=== PATIENT | female | born 1985 | race Caucasian/White ===

== ENCOUNTER 2018-10-03 21:15 | Emergency (ER) | payer SELFPAY ==
--- NOTE | 2018-10-04 00:58 | EDPHYS ---
Physician Documentation [facility] Name: Juana Vigil Age: 33 yrs Sex: Female : 1985 Arrival Date: 10/03/2018 Time: 21:19 Bed 5 Private MD: ED Physician Willard Cornejo HPI: 10/04 00:17 This 33 yrs old Female presents to ER via Wheelchair with complaints of Ankle jmm Injury. 00:17 The patient presents with an injury, pain. Onset: The symptoms/episode began/occurred jmm acutely, just prior to arrival. Context: The problem was sustained at work, resulted from a mis-step by the patient, The mechanism of injury involved inversion of the affected ankle. The patient can partially bear weight on the affected extremity. the patient is able to ambulate, with moderate difficulty. Modifying factors: The symptoms are alleviated by elevation of extremity, the symptoms are aggravated by weight bearing, movement. Patient complains of diffuse left ankle pain after twisting her left ankle. patient denies other injury. . 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 - Social history:: Smoking status: Patient uses tobacco products, smokes one-half pack cigarettes per day. - Ebola Screening: : No symptoms or risks identified at this time. ROS: 10/04 00:17 Constitutional: Negative for fever, chills, and weight loss. jmm MS/extremity: Positive for injury or acute deformity, pain. All other systems are negative. Exam: 00:17 Constitutional: This is a well developed, well nourished patient who is awake, alert, jmm and in no acute distress. Head/Face: atraumatic. Eyes: EOMI, no conjunctival erythema appreciated ENT: Moist Mucus Membranes Neck: Trachea midline, Supple Chest/axilla: Normal chest wall appearance and motion. Cardiovascular: Regular rate and rhythm. No edema appreciated Respiratory: Normal respirations, no respiratory distress appreciated Abdomen/GI: Non distended, soft Back: Normal ROM Skin: General appearance color normal 00:17 Musculoskeletal/extremity: diffuse left ankle pain on palpation, no obvious deformity is appreciated, full dorsalis pedis pulse, compartments are soft, no tenderness appreciated on palpation of the base of the 5th metatarsal, NVI. 00:17 Psych: Behavior/mood is pleasant, cooperative. Vital Signs: 10/03 21:38 BP 119 / 87; Pulse 88; Resp 18; Temp 98(O); Pulse Ox 98% on R/A; Weight 136.08 kg; lp1 Height 5 ft. 9 in. (175.26 cm); Pain 10/10; 23:35 BP 120 / 81; Pulse 89; Resp 17 S; Pulse Ox 98% on R/A; cc3 10/04 00:55 BP 121 / 78; Pulse 88; Resp 16 S; Pulse Ox 97% on R/A; cc3 10/03 21:38 Body Mass Index 44.30 (136.08 kg, 175.26 cm) lp1 Procedures: 00:17 Splinting: Splint applied to left leg using posterior splint. applied by tech. Examined jmm by me, post splint application: neurovascular intact, 2+ distal pulses palpable, brisk capillary refill noted, Patient tolerated well. MDM: 00:17 Patient medically screened. [facility] 00:56 Data reviewed: vital signs, nurses notes. Counseling: I had a detailed discussion with [facility] the patient and/or guardian regarding: the historical points, exam findings, and any diagnostic results supporting the discharge/admit diagnosis, the need for outpatient follow up, to return to the emergency department if symptoms worsen or persist or if there are any questions or concerns that arise at home. 00:56 Counseling: I had a detailed discussion with the patient and/or guardian regarding: [facility] radiology results. 10/03 21:39 Order name: Ankle Left 3 View XRAY lp1 10/04 00:30 Order name: Posterior Leg Splint; Complete Time: 01:11 [facility] 10/04 00:30 Order name: Crutches; Complete Time: 01:11 [facility] Administered Medications: 00:55 Drug: [place] 10 mg-325 mg 1 tabs Route: PO; cc3 01:15 Follow up: Response: No adverse reaction; Pain is decreased cc3 Disposition: 05:18 Co-signature as Attending Physician, Willard Cornejo MD. Disposition: 03/28/19 00:57 Discharged to Home. Impression: Sprain of ankle. - Condition is Stable. - Discharge Instructions: Ankle Sprain. - Prescriptions for Ibuprofen 800 mg Oral Tablet - take 1 tablet by ORAL route every 8 hours As needed take with food; 30 tablet. - Work release form, Medication Reconciliation Form, Thank You Letter, Antibiotic Education, Prescription Opioid Use form. - Follow up: Private Physician; When: 2 - 3 days; Reason: Recheck today's complaints, Continuance of care, Re-evaluation by your physician. Follow up: Audie Arambula MD; When: 2 - 3 days; Reason: Recheck today's complaints, Continuance of care, Re-evaluation by your physician. Signatures: Dispatcher [employer] EDMS Raymon Baltazar PA PA jmm Pena, Laura, RN RN lp1 Willard Cornejo MD MD Renate Siu cc3 Corrections: (The following items were deleted from the chart) 00:58 00:57 10/04/2018 00:57 Discharged to Home. Impression: Sprain of ankle. Condition is [facility] Stable. Forms are Medication Reconciliation Form, Thank You Letter, Antibiotic Education, Prescription Opioid Use. Follow up: Private Physician; When: 2 - 3 days; Reason: Recheck today's complaints, Continuance of care, Re-evaluation by your physician. [facility] 01:24 00:58 10/04/2018 00:57 Discharged to Home. Impression: Sprain of ankle. Condition is cc3 Stable. Discharge Instructions: Ankle Sprain. Prescriptions for Ibuprofen 800 mg Oral Tablet - take 1 tablet by ORAL route every 8 hours As needed take with food; 30 tablet. and Forms are Medication Reconciliation Form, Thank You Letter, Antibiotic Education, Prescription Opioid Use. Follow up: Private Physician; When: 2 - 3 days; Reason: Recheck today's complaints, Continuance of care, Re-evaluation by your physician. Follow up: Audie Arambula; When: 2 - 3 days; Reason: Recheck today's complaints, Continuance of care, Re-evaluation by your physician. [facility]
--- NOTE | 2018-10-04 00:58 | ER ---
Nurse's Notes [facility] Name: Juana Vigil Age: 33 yrs Sex: Female : 1985 Arrival Date: 10/03/2018 Time: 21:19 Bed 5 Private MD: Diagnosis: Sprain of ankle Presentation: 10/03 21:35 Presenting complaint: Patient states: Patient was at work and slipped on something on lp1 the floor, rolled left ankle; States continuing to work after but pain began to get worse; Denies ability to bear weight. Transition of care: patient was not received from another setting of care. Onset of symptoms was October 03, 2018 at 18:20. Risk Assessment: Do you want to hurt yourself or someone else? Patient reports no desire to harm self or others. Initial Sepsis Screen: Does the patient meet any 2 criteria? No. Patient's initial sepsis screen is negative. Does the patient have a suspected source of infection? No. Patient's initial sepsis screen is negative. Care prior to arrival: None. 21:35 Method Of Arrival: Wheelchair lp1 21:35 Acuity: HUEY 4 lp1 Triage Assessment: 23:27 General: Appears in no apparent distress. uncomfortable, Behavior is calm, cooperative, cc3 appropriate for age. Pain: Complains of pain in left leg. EENT: No signs and/or symptoms were reported regarding the EENT system. Neuro: Level of Consciousness is awake, alert, obeys commands, Oriented to person, place, time, situation, Appropriate for age. Cardiovascular: Patient's skin is warm and dry. Respiratory: Airway is patent Respiratory effort is even, unlabored, Respiratory pattern is regular, symmetrical. GI: Abdomen is round obese. : No signs and/or symptoms were reported regarding the genitourinary system. Derm: No signs and/or symptoms reported regarding the dermatologic system. Musculoskeletal: Circulation, motion, and sensation intact. Range of motion: limited in left leg. 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 - Social history:: Smoking status: Patient uses tobacco products, smokes one-half pack cigarettes per day. - Ebola Screening: : No symptoms or risks identified at this time. Screenin:27 Abuse screen: Denies threats or abuse. Denies injuries from another. Nutritional cc3 screening: No deficits noted. Tuberculosis screening: No symptoms or risk factors identified. Fall Risk Ambulatory Aid- None/Bed Rest/Nurse Assist (0 pts). Gait- Normal/Bed Rest/Wheelchair (0 pts) Mental Status- Oriented to own ability (0 pts). Assessment: 23:27 General: see triage assessment. cc3 10/04 00:15 Reassessment: Patient appears in no apparent distress at this time. Patient and/or cc3 family updated on plan of care and expected duration. Pain level reassessed. Patient is alert, oriented x 3, equal unlabored respirations, skin warm/dry/pink. 01:15 Reassessment: Patient appears in no apparent distress at this time. Patient and/or cc3 family updated on plan of care and expected duration. Pain level reassessed. Patient is alert, oriented x 3, equal unlabored respirations, skin warm/dry/pink. JAMEL Baltazar discharged the patient home with prescription given. No IV cannula in situ. Patient left ER vitally stable by wheelchair escorted by me and her brother. Vital Signs: 10/03 21:38 BP 119 / 87; Pulse 88; Resp 18; Temp 98(O); Pulse Ox 98% on R/A; Weight 136.08 kg; lp1 Height 5 ft. 9 in. (175.26 cm); Pain 10/10; 23:35 BP 120 / 81; Pulse 89; Resp 17 S; Pulse Ox 98% on R/A; cc3 10/04 00:55 BP 121 / 78; Pulse 88; Resp 16 S; Pulse Ox 97% on R/A; cc3 10/03 21:38 Body Mass Index 44.30 (136.08 kg, 175.26 cm) lp1 ED Course: 10/03 21:19 Patient arrived in ED. es 21:37 Triage completed. lp1 21:38 Arm band placed on right wrist. lp1 22:50 Ankle Left 3 View XRAY In Process Unspecified. EDMS 23:27 Renate Siu is Primary Nurse. cc3 23:27 Patient has correct armband on for positive identification. Bed in low position. Call cc3 light in reach. Side rails up X 1. Pulse ox on. NIBP on. 23:44 Raymon Baltazar PA is PHCP. [facility] [place] 23:44 Willard Cornejo MD is Attending Physician. [facility] 10/04 00:58 Audie Arambula MD is Referral Physician. [facility] 01:09 Crutch training done. Orthoglass splint: Posterior short lleg splint applied on left me leg. 01:15 No provider procedures requiring assistance completed. Patient did not have IV access cc3 during this emergency room visit. Administered Medications: 00:55 Drug: [place] 10 mg-325 mg 1 tabs Route: PO; cc3 01:15 Follow up: Response: No adverse reaction; Pain is decreased cc3 Outcome: 00:57 Discharge ordered by . [facility] [place] 01:15 Discharged to home via wheelchair. cc3 01:15 Condition: stable 01:15 Discharge instructions given to patient, Instructed on discharge instructions, follow up and referral plans. medication usage, Demonstrated understanding of instructions, follow-up care, medications, Prescriptions given X 1. 01:24 Patient left the ED. cc3 Signatures: Dispatcher [employer] EDMS Raymon Baltazar PA PA [facility] [place] Mckenna De Jesus Laura, RN RN lp1 [facility] Reante Siu cc3 Corrections: (The following items were deleted from the chart) 04:38 00:20 BP 121 / 78; Pulse 88bpm; Resp 16bpm; Spontaneous; Pulse Ox 97% RA; cc3 cc3
[2018-10-04] MEDS ORDERED: HYDROCODONE/APAP 10/325 TAB ONE (01:06)
--- NOTE | 2018-10-04 08:16 | RAD REPORT ---
EXAM DESCRIPTION: RAD - Ankle Left 3 View -10/03/2018 10:49 pm CLINICAL HISTORY: Left ankle pain status post injury FINDINGS: No acute fracture or dislocation is seen. Bony density with a sclerotic border lies inferi or to the lateral malleolus and likely either represents an ossicle or is chronic Soft tissue swelling
== END 2018-10-04 01:24 | disposition home or self-care (01) ==
LOC: ER 21:15
PROC: 2W3RX1Z Immobilization of Left Lower Leg using Splint (ICD-10-PCS; principal; 2018-10-03)
DX: S93.402A Sprain of unspecified ligament of left ankle, initial encounter (principal); X50.1XXA Overexertion from prolonged static or awkward postures, initial encounter; J45.909 Unspecified asthma, uncomplicated; F32.9 Major depressive disorder, single episode, unspecified; Z88.0 Allergy status to penicillin; F17.210 Nicotine dependence, cigarettes, uncomplicated
CPT/HCPCS: 99284

== ENCOUNTER 2018-10-12 10:06 | Emergency (ER) | payer SELFPAY ==
[2018-10-12] MEDS ORDERED: MORPHINE 4 MG/ML SYR ONE (10:58)
[2018-10-12] MEDS ORDERED: ONDANSETRON 4 MG/2 ML VIAL ONE (10:58)
[2018-10-12] MEDS ORDERED: NA CHLORIDE 0.9% 1,000 ML ONE (11:08)
[2018-10-12 11:10] LABS: Absolute Lymphocytes (CBC) 2.4 K/uL (0.7-4.9); Absolute Monocytes 0.7 K/uL (0.1-1.3); Absolute Neutrophil 9.5 K/uL (1.8-8.0); Basophils % 0.7 % (0-1.3); Eosinophils % 0.8 % (0-4.4); Lymphocytes % 18.8 % (15.3-44.8); Monocytes % 5.6 % (3.3-12.3); RBC Red Blood Cell Count 4.93 M/uL (3.86-4.86)
[2018-10-12 11:17] LABS: Urine Blood 3+ (NEG); Urine Glucose NEGATIVE (NEG); Urine Protein 2+ (NEG); Urine Specific Gravity 1.025 (1.005-1.030); Urine pH 5.5 (5.0-7.0)
--- NOTE | 2018-10-12 11:26 | RAD REPORT ---
EXAM DESCRIPTION: CT - Stone Protocol - 10/12/2018 11:15 am CLINICAL HISTORY: Left-sided abdominal pain, left-sided flank pain COMPARISON: None. TECHNIQUE: Axial 5 mm thick images were obtained without oral or IV contrast. The [id number] span s the entirety of the system including uppermost abdomen and lung bases. All CT scans are performed using dose optimization technique as appropriate and may include automated exposure control or mA/KV adjustment according to patient size. FINDINGS: A 2-3 millimeter calcification is present at the left UVJ. No measurable hydronephrosis. N o right-sided hydronephrosis. Bilateral nonobstructing calyx calculi are present. Largest is on the r ight at 7 mm lower pole. In the medial superior margin left kidney a 13 millimeter round low-density mass is present. Attenuation value is 11 Hounsfield units. This is probably a benign cyst. There is a punctate calcification along the posterior margin. This is not fully assessed on a noncontrast study . Isodense masses and pyelonephritis are not excluded on non IV contrast imaging. Urinary bladder is mostly contracted. No significant adrenal finding. Fatty infiltration is seen in the liver. No focal liver lesions seen. The spleen and pancreas show no suspicious findings. No gallbladder or biliary tree abnormality identified. No suspicious bowel findings. No hernia, mass or bulky lymphadenopathy noted. No free air, free fluid or inflammatory stranding. No significant bony abnormality. IMPRESSION: A small 2- 3 millimeter left UVJ calculus is present but without hydronephrosis. Approximately 13 millimeter low-density mass upper pole left kidney most likely a minimal complex cys t due to a punctate rim calcification. This can be monitored on follow-up imaging. Long-term signific ance is doubtful. Bilateral nonobstructing renal calculi. Diffuse fatty infiltration of the liver. Isodense masses and pyelonephritis are not excluded on stone protocol technique.
[2018-10-12 11:31] LABS: ALT/SGPT 46 U/L (12-78); AST/SGOT 18 U/L (15-37); Albumin 3.5 g/dL (3.4-5.0); Alkaline Phosphatase 82 U/L (45-117); BUN Blood Urea Nitrogen 13 mg/dL (7-18); Bicarbonate 24 mmol/L (21-32); Bilirubin Direct < 0.1 mg/dL (0-0.2); Bilirubin Total 0.4 mg/dL (0.2-1.0); Glucose Level 158 mg/dL (74-106); Lipase 139 U/L (73-393); Potassium 4.1 mmol/L (3.5-5.1); Protein, Total 7.5 g/dL (6.4-8.2); Sodium Level 140 mmol/L (136-145)
[2018-10-12] MEDS ORDERED: KETOROLAC 30 MG/ML INJ ONE (11:54)
--- NOTE | 2018-10-12 12:29 | EDPHYS ---
Physician Documentation [facility] Name: Juana Vigil Age: 33 yrs Sex: Female : 1985 Arrival Date: 10/12/2018 Time: 10:07 Bed 18 Private MD: ED Physician Jf Rodriguez HPI: 10/12 10:43 This 33 yrs old Female presents to ER via Ambulatory with complaints of jmm Abdominal Pain, Back Pain. 10:43 The patient presents with abdominal pain. Onset: The symptoms/episode began/occurred jmm acutely, 2 hour(s) ago. The symptoms radiate to left back. This is a 33 year old female with a history of astham, depression, PCOS, that presents to the ED with left flank pain beginning approx 2 hours prior to arrival. patient states the pain radiates to her left flank. . 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 - Social history:: Smoking status: Patient uses tobacco products, Patient uses alcohol. - Ebola Screening: : Patient negative for fever greater than or equal to 101.5 degrees Fahrenheit, and additional compatible Ebola Virus Disease symptoms Patient denies exposure to infectious person Patient denies travel to an Ebola-affected area in the 21 days before illness onset. ROS: 10:43 Constitutional: Negative for fever, chills, and weight loss, Cardiovascular: Negative jmm for chest pain, palpitations, and edema, Respiratory: Negative for shortness of breath, cough, wheezing, and pleuritic chest pain. 10:43 Abdomen/GI: Positive for abdominal pain, nausea, flank pain. 10:43 All other systems are negative. Exam: 10:43 Head/Face: atraumatic. Eyes: EOMI, no conjunctival erythema appreciated ENT: Moist jmm Mucus Membranes Neck: Trachea midline, Supple Chest/axilla: Normal chest wall appearance and motion. Cardiovascular: Regular rate and rhythm. No edema appreciated Respiratory: Normal respirations, no respiratory distress appreciated 10:43 MS/ Extremity: Moves all extremities, no obvious deformities appreciated, no edema noted to the lower extremities Neuro: Awake and alert, normal gait Psych: Behavior is normal, Mood is normal, Patient is cooperative and pleasant 10:43 Constitutional: The patient appears in no acute distress, alert, awake. 10:43 Abdomen/GI: Inspection: abdomen appears normal, Bowel sounds: normal, Palpation: soft, moderate abdominal tenderness, in the left lower quadrant. 10:43 Back: ROM is normal, CVA tenderness, that is moderate, is noted on the left. Vital Signs: 10:19 BP 126 / 87; Pulse 82; Resp 18; Temp 98.2(TE); Pulse Ox 98% on R/A; Weight 136.08 kg; hj Height 5 ft. 8 in. (172.72 cm); Pain 10/10; 11:10 BP 111 / 63; Pulse 68; Resp 18; Pulse Ox 99% on R/A; Pain 6/10; em 12:24 BP 117 / 71; Pulse 64; Resp 18; Pulse Ox 98% on R/A; Pain 4/10; em 10:19 Body Mass Index 45.62 (136.08 kg, 172.72 cm) MDM: 10:46 Patient medically screened. [facility] 12:27 Data reviewed: vital signs, nurses notes. Counseling: I had a detailed discussion with julio césar the patient and/or guardian regarding: the historical points, exam findings, and any diagnostic results supporting the discharge/admit diagnosis, radiology results, the need for outpatient follow up, to return to the emergency department if symptoms worsen or persist or if there are any questions or concerns that arise at home. ED course: Patient's pain relieved in the ED. CT reveal uvj stone consistent with patient's area of pain. Patient is advised to follow up with urology and otherwise given strict return precautions. Patient understood and agrees with the plan of care. . 10/12 10:46 Order name: Urine Dipstick--Ancillary (enter results); Complete Time: 11:24 10/12 10:46 Order name: Urine --Ancillary (enter results); Complete Time: 11:24 10/12 10:47 Order name: Basic Metabolic Panel; Complete Time: 11:32 [facility] 10/12 10:47 Order name: CBC with Diff; Complete Time: 11:24 [facility] 10/12 10:47 Order name: Creatinine for Radiology; Complete Time: 11: [facility] 10/12 10:47 Order name: Hepatic Function; Complete Time: 11: [facility] 10/12 10:47 Order name: Lipase; Complete Time: [facility] 10/12 10:47 Order name: IV Saline Lock; Complete Time: 11: [facility] 10/12 10:47 Order name: Labs collected and sent; Complete Time: : [facility] 10/12 10:47 Order name: CT Stone Protocol; Complete Time: 11: [facility] 10/12 10:47 Order name: Urine Dipstick-Ancillary (obtain specimen); Complete Time: 11: [facility] Administered Medications: 10:55 Drug: morphine 4 mg Route: IVP; Site: right hand; hb 11:10 Follow up: Response: No adverse reaction; Pain is decreased em 10:55 Drug: Zofran 4 mg Route: IVP; Site: right hand; hb 11:10 Follow up: Response: No adverse reaction; Nausea is decreased em 11:02 Drug: NS 0.9% 1000 ml Route: IV; Rate: 1 bolus; Site: right hand; em 12:30 Follow up: IV Status: Completed infusion; IV Intake: 1000ml em 11:53 Drug: Ketorolac 30 mg Route: IVP; Site: right hand; hb 12:15 Follow up: Response: No adverse reaction; Pain is decreased em Disposition: 13:38 Co-signature as Attending Physician, Jf Rodriguez MD I agree with the assessment and kdr plan of care. Disposition: 10/12/18 12:28 Discharged to Home. Impression: Calculus of kidney and ureter. - Condition is Stable. - Discharge Instructions: Kidney Stones, Dietary Guidelines to Help Prevent Kidney Stones. - Prescriptions for Zofran ODT 4 mg Oral tablet,disintegrating - place 1 tablet by TRANSLINGUAL route every 4-6 hours; 20 tablet. Tylenol- Codeine #3 300-30 mg Oral Tablet - take 1 tablet by ORAL route every 6 hours As needed; 20 tablet. Flomax 0.4 mg Oral Capsule, Sust. Release 24 hr - take 1 capsule by ORAL route once daily 1/2 hour following the same meal each day; 30 capsule. - Medication Reconciliation Form, Thank You Letter, Antibiotic Education, Prescription Opioid Use, Work release form form. - Follow up: Obie Bartholomew MD; When: 2 - 3 days; Reason: Recheck today's complaints, Continuance of care, Re-evaluation by your physician. Signatures: Dispatcher [employer] Jf Holliday MD MD kdr Mickail, Joel, PA PA jmm Munoz, Edgar, SALES TEAM MANAGER SALES TEAM MANAGER em Prasanna Boles RN RN Blanca Young RN RN Corrections: (The following items were deleted from the chart) 12:50 12:28 10/12/2018 12:28 Discharged to Home. Impression: Calculus of kidney and ureter. em Condition is Stable. Forms are Medication Reconciliation Form, Thank You Letter, Antibiotic Education, Prescription Opioid Use. Follow up: Oibe Bartholomew; When: 2 - 3 days; Reason: Recheck today's complaints, Continuance of care, Re-evaluation by your physician. luis carlos
--- NOTE | 2018-10-12 12:29 | ER ---
Nurse's Notes [facility] Name: Juana Vigil Age: 33 yrs Sex: Female : 1985 Arrival Date: 10/12/2018 Time: 10:07 Bed 18 Private MD: Diagnosis: Calculus of kidney and ureter Presentation: 10/12 10:17 Presenting complaint: Patient states: im hurting on my L lower abd just beside my hj bladder area that the pain moves back to the L lower back and legs; it started 45 mins ago; reports vomiting; reports chills;. Transition of care: patient was not received from another setting of care. Onset of symptoms was October 12, 2018. Risk Assessment: Do you want to hurt yourself or someone else? Patient reports no desire to harm self or others. Initial Sepsis Screen: Does the patient meet any 2 criteria? No. Patient's initial sepsis screen is negative. Does the patient have a suspected source of infection? No. Patient's initial sepsis screen is negative. Care prior to arrival: None. 10:17 Method Of Arrival: Ambulatory 10:17 Acuity: HUEY 3 Triage Assessment: 10:19 General: Appears in no apparent distress. uncomfortable, obese, Behavior is calm, hj cooperative, appropriate for age. Pain: Complains of pain in abdomen. GI: Reports lower abdominal pain, nausea, vomiting. 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 - Social history:: Smoking status: Patient uses tobacco products, Patient uses alcohol. - Ebola Screening: : Patient negative for fever greater than or equal to 101.5 degrees Fahrenheit, and additional compatible Ebola Virus Disease symptoms Patient denies exposure to infectious person Patient denies travel to an Ebola-affected area in the 21 days before illness onset. Screenin:19 Abuse screen: Denies threats or abuse. Denies injuries from another. Nutritional hj screening: No deficits noted. Tuberculosis screening: No symptoms or risk factors identified. Fall Risk None identified. Assessment: 10:19 GI: Bowel sounds present X 4 quads. Abd is soft Abdomen is tender to palpation. hj 10:45 General: Appears in no apparent distress. uncomfortable, Behavior is calm, cooperative, em Denies fever. Pain: Complains of pain in abdomen Pain currently is 10 out of 10 on a pain scale. Quality of pain is described as sharp, shooting, Pain began 1 hour ago. Neuro: Level of Consciousness is awake, alert, obeys commands, Oriented to person, place, time, situation. Cardiovascular: Capillary refill < 3 seconds Patient's skin is warm and dry. Respiratory: Airway is patent Respiratory effort is even, unlabored, Respiratory pattern is regular, symmetrical. GI: Abdomen is round obese, Bowel sounds present X 4 quads. Abd is soft X 4 quads Abdomen is tender to palpation in right lower quadrant and left lower quadrant Reports nausea, vomiting. : Urine is tea color Denies burning with urination. Derm: Skin is intact, is healthy with good turgor, Skin is pink, warm \T\ dry. Musculoskeletal: Capillary refill < 3 seconds, Range of motion: intact in all extremities. 11:00 Reassessment: I agree with previous assessment. hb 11:50 Reassessment: Patient appears in no apparent distress at this time. Patient and/or em family updated on plan of care and expected duration. Pain level reassessed. Patient is alert, oriented x 3, equal unlabored respirations, skin warm/dry/pink. Patient states feeling better. Patient states symptoms have improved. Vital Signs: 10:19 BP 126 / 87; Pulse 82; Resp 18; Temp 98.2(TE); Pulse Ox 98% on R/A; Weight 136.08 kg; hj Height 5 ft. 8 in. (172.72 cm); Pain 10/10; 11:10 BP 111 / 63; Pulse 68; Resp 18; Pulse Ox 99% on R/A; Pain 6/10; em 12:24 BP 117 / 71; Pulse 64; Resp 18; Pulse Ox 98% on R/A; Pain 4/10; em 10:19 Body Mass Index 45.62 (136.08 kg, 172.72 cm) ED Course: 10:07 Patient arrived in ED. as 10:18 Triage completed. hj 10:19 Arm band placed on left wrist. hj 10:21 Patient has correct armband on for positive identification. Placed in gown. Bed in low hj position. Call light in reach. Side rails up X 1. 10:29 Raymon Baltazar PA is PHCP. [facility] 10:29 Jf Rodriguez MD is Attending Physician. jm 10:38 Darinel Hartman LVN is Primary Nurse. em 10:45 Initial lab(s) drawn, by me, sent to lab. Inserted saline lock: 22 gauge in right hand, em using aseptic technique. Blood collected. 10:59 Radiology exam delayed due to test not completed at this time. 11:14 CT completed. Patient tolerated procedure well. Patient moved to CT via wheelchair. Patient moved back from CT. 11:16 CT Stone Protocol In Process Unspecified. EDMS 12:27 Obie Bartholomew MD is Referral Physician. [facility] 12:49 No provider procedures requiring assistance completed. IV discontinued, intact, em bleeding controlled, No redness/swelling at site. Pressure dressing applied. Administered Medications: 10:55 Drug: morphine 4 mg Route: IVP; Site: right hand; hb 11:10 Follow up: Response: No adverse reaction; Pain is decreased em 10:55 Drug: Zofran 4 mg Route: IVP; Site: right hand; hb 11:10 Follow up: Response: No adverse reaction; Nausea is decreased em 11:02 Drug: NS 0.9% 1000 ml Route: IV; Rate: 1 bolus; Site: right hand; em 12:30 Follow up: IV Status: Completed infusion; IV Intake: 1000ml em 11:53 Drug: Ketorolac 30 mg Route: IVP; Site: right hand; hb 12:15 Follow up: Response: No adverse reaction; Pain is decreased em Intake: 12:30 IV: 1000ml; Total: 1000ml. em Outcome: 12:28 Discharge ordered by MD. jmm 12:50 Discharged to home ambulatory. em 12:50 Condition: good 12:50 Discharge instructions given to patient, Instructed on discharge instructions, follow up and referral plans. medication usage, Demonstrated understanding of instructions, follow-up care, medications, Prescriptions given X 3. 12:50 Patient left the ED. em Signatures: Dispatcher [employer] EDMS Raymon Baltazar PA PA [facility] Rudi Cantu Danette Manzano Edgar, LVN LVN Bree Nelson as Prasanna Boles, RN RN Blanca Young, INES RN Corrections: (The following items were deleted from the chart) 10:23 10:19 Pulse 82bpm; Resp 18bpm; Pulse Ox 98% RA; Temp 98.2F Temporal; 136.08 kg; Height hj 5 ft. 8 in.; BMI: 45.6; Pain 04/18; hj
== END 2018-10-12 12:50 | disposition home or self-care (01) ==
LOC: ER 10:06
DX: N20.2 Calculus of kidney with calculus of ureter (principal); J45.909 Unspecified asthma, uncomplicated; F32.9 Major depressive disorder, single episode, unspecified; Z88.0 Allergy status to penicillin; Z72.0 Tobacco use
CPT/HCPCS: 36415; 74176; 76377; 80048; 80076; 81003; 81025; 83690; 85025; 96361; 96374; 96375; 99284; J2405; J7030

== ENCOUNTER 2018-11-21 21:14 | Emergency (ER) | payer SELFPAY ==
[2018-11-21 22:07] LABS: Absolute Lymphocytes (CBC) 2.9 K/uL (0.7-4.9); Absolute Monocytes 0.9 K/uL (0.1-1.3); Absolute Neutrophil 16.5 K/uL (1.8-8.0); Basophils % 0.3 % (0-1.3); Eosinophils % 1.1 % (0-4.4); Hematocrit 40.9 % (36.0-45.0); Lymphocytes % 14.1 % (15.3-44.8); MPV 10.3 fL (7.6-11.3); Monocytes % 4.4 % (3.3-12.3)
[2018-11-21 22:11] LABS: Protime INR 1.13
[2018-11-21 22:14] LABS: Barbiturates NEGATIVE (NEGATIVE); Benzodiazepines NEGATIVE (NEGATIVE); Cocaine NEGATIVE (NEGATIVE); METHAMPHETAM NEGATIVE (NEGATIVE); Methadone NEGATIVE (NEGATIVE); Opiates NEGATIVE (NEGATIVE); Phencyclidine NEGATIVE (NEGATIVE); THC Cannibis NEGATIVE (NEGATIVE)
[2018-11-21 22:23] LABS: ALT/SGPT 41 U/L (12-78); AST/SGOT 17 U/L (15-37); Albumin 3.6 g/dL (3.4-5.0); Alkaline Phosphatase 84 U/L (45-117); BUN Blood Urea Nitrogen 16 mg/dL (7-18); Bicarbonate 24 mmol/L (21-32); Bilirubin Direct < 0.1 mg/dL (0-0.2); Bilirubin Total 0.2 mg/dL (0.2-1.0); Glucose Level 189 mg/dL (74-106); Potassium 3.9 mmol/L (3.5-5.1); Sodium Level 141 mmol/L (136-145)
[2018-11-21 22:23] LABS: Urine Blood 2+ (NEG); Urine Glucose NEGATIVE (NEG); Urine Protein TRACE (NEG); Urine Specific Gravity >1.030 (1.005-1.030)
[2018-11-21 22:37] LABS: Blood Morphology Comment NOT SEEN (NOT SEEN); Platelet Estimate ADEQ
[2018-11-22] MEDS ORDERED: NA CHLORIDE 0.9% 1,000 ML ONE ×2 (00:22→00:40)
[2018-11-22 03:16] LABS: Absolute Lymphocytes (CBC) 3.8 K/uL (0.7-4.9); Absolute Monocytes 0.9 K/uL (0.1-1.3); Absolute Neutrophil 12.3 K/uL (1.8-8.0); Basophils % 0.4 % (0-1.3); Eosinophils % 1.4 % (0-4.4); Hematocrit 37.4 % (36.0-45.0); Lymphocytes % 22.1 % (15.3-44.8); MPV 10.4 fL (7.6-11.3); Monocytes % 5.2 % (3.3-12.3); RBC Red Blood Cell Count 4.52 M/uL (3.86-4.86)
--- NOTE | 2018-11-22 12:46 | EKG ---
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
[2018-11-22] MEDS ORDERED: NICOTINE 21 MG/PAT TD ONE (19:02)
[2018-11-22 19:50] LABS: Absolute Lymphocytes (CBC) 3.4 K/uL (0.7-4.9); Absolute Monocytes 0.9 K/uL (0.1-1.3); Absolute Neutrophil 12.3 K/uL (1.8-8.0); Basophils % 0.5 % (0-1.3); Eosinophils % 1.7 % (0-4.4); Hematocrit 41.6 % (36.0-45.0); MPV 10.2 fL (7.6-11.3); Monocytes % 5.1 % (3.3-12.3); RBC Red Blood Cell Count 4.96 M/uL (3.86-4.86)
--- NOTE | 2018-11-23 03:18 | EDPHYS ---
Physician Documentation [facility] Name: Juana Vigil Age: 33 yrs Sex: Female : 1985 Arrival Date: 11/21/2018 Time: 21:14 Bed 20 Private MD: ED Physician Faheem Soto HPI: 11/21 22:07 This 33 yrs old Female presents to ER via Ambulatory with complaints of pm1 Suicidal Ideation. 22:07 The patient presents to the emergency department with suicide ideation, and the patient pm1 has a plan, to cut oneself and bleed. Onset: The symptoms/episode began/occurred 6 month(s) ago, and became worse today. Past psychiatric history: Prior diagnosis: depression, Psychiatric medications include: none, Primary psychiatric physician: the patient does not have a primary psychiatric physician. Associated signs and symptoms: Pertinent positives; hallucinations, suicide ideation. Severity of symptoms: in the emergency department the symptoms are worse Pain is currently a 0 / 10. The patient has experienced similar episodes in the past, chronically. The patient has not recently seen a physician. Patient with a history of cutting. "Tried to cut herself today but the knife was too dull.". 22:07 Patient reports visual hallucinations of demons and hearing voice that tell her to hurt pm1 herself. Historical: - Allergies: 21:18 PENICILLINS; la1 - Home Meds: 21:18 None [Active]; la1 - PMHx: 21:18 Asthma; Depression; PCOS; la1 - PSHx: 21:18 None; la1 - Immunization history:: Adult Immunizations up to date. - Social history:: Smoking status: Patient uses tobacco products, smokes one-half pack cigarettes per day. - Ebola Screening: : No symptoms or risks identified at this time. ROS: 22:07 Constitutional: Negative for fever, chills, and weight loss, Eyes: Negative for injury, pm1 pain, redness, and discharge, ENT: Negative for injury, pain, and discharge, Neck: Negative for injury, pain, and swelling, Cardiovascular: Negative for chest pain, palpitations, and edema, Respiratory: Negative for shortness of breath, cough, wheezing, and pleuritic chest pain, Abdomen/GI: Negative for abdominal pain, nausea, vomiting, diarrhea, and constipation, Back: Negative for injury and pain, : Negative for injury, bleeding, discharge, and swelling, MS/Extremity: Negative for injury and deformity, Skin: Negative for injury, rash, and discoloration, Neuro: Negative for headache, weakness, numbness, tingling, and seizure. 22:07 Psych: Positive for depression, auditory hallucinations, visual hallucinations, suicidal ideation. Exam: 22:07 Constitutional: This is a well developed, well nourished patient who is awake, alert, pm1 and in no acute distress. Head/Face: Normocephalic, atraumatic. Eyes: Pupils equal round and reactive to light, extra-ocular motions intact. Lids and lashes normal. Conjunctiva and sclera are non-icteric and not injected. Cornea within normal limits. Periorbital areas with no swelling, redness, or edema. ENT: Nares patent. No nasal discharge, no septal abnormalities noted. Tympanic membranes are normal and external auditory canals are clear. Oropharynx with no redness, swelling, or masses, exudates, or evidence of obstruction, uvula midline. Mucous membranes moist. Neck: Trachea midline, no thyromegaly or masses palpated, and no cervical lymphadenopathy. Supple, full range of motion without nuchal rigidity, or vertebral point tenderness. No Meningismus. Chest/axilla: Normal chest wall appearance and motion. Nontender with no deformity. No lesions are appreciated. Cardiovascular: Regular rate and rhythm with a normal S1 and S2. No gallops, murmurs, or rubs. Normal PMI, no JVD. No pulse deficits. Respiratory: Lungs have equal breath sounds bilaterally, clear to auscultation and percussion. No rales, rhonchi or wheezes noted. No increased work of breathing, no retractions or nasal flaring. Abdomen/GI: Soft, non-tender, with normal bowel sounds. No distension or tympany. No guarding or rebound. No evidence of tenderness throughout. Back: No spinal tenderness. No costovertebral tenderness. Full range of motion. 22:07 MS/ Extremity: Pulses equal, no cyanosis. Neurovascular intact. Full, normal range of motion. 22:07 Skin: Appearance: normal except for affected area, injury, abrasion(s), small abrasion noted, of the palmar aspect of left forearm. 22:07 Neuro: Orientation: is normal, Motor: moves all fours. 22:07 Psych: Behavior/mood is cooperative, depressed, Affect is flat, Oriented to person, place, time. Vital Signs: 21:25 Temp 97.4; Pulse Ox 100% on R/A; Weight 122.47 kg; Height 5 ft. 8 in. (172.72 cm); Pain la1 4/10; 21:26 BP 131 / 91; la1 23:54 BP 100 / 58; Pulse 89; Resp 14; Temp 98.3(O); Pulse Ox 98% on R/A; ed1 11/22 06:35 BP 117 / 92; Pulse 81; Resp 14; Temp 97.8(O); Pulse Ox 98% ; ag4 10:00 BP 118 / 82; Pulse 67; Resp 18; Temp 97.7(O); Pulse Ox 99% on R/A; dh3 14:00 BP 120 / 81; Pulse 72; Resp 17; Temp 98.1(O); Pulse Ox 100% on R/A; dh3 18:00 BP 122 / 82; Pulse 71; Resp 17; Temp 98.5(O); Pulse Ox 99% on R/A; dh3 22:46 BP 116 / 80; Pulse 64; Resp 16; Pulse Ox 99% on R/A; mt 11/23 06:45 BP 133 / 78; Pulse 70; Resp 18; Pulse Ox 100% on R/A; oe 11:00 BP 129 / 76; Pulse 68; Resp 18; Pulse Ox 100% ; ms 19:57 BP 128 / 78; Pulse 80; Resp 14; Temp 98.5(O); Pulse Ox 99% on R/A; ag4 11/24 07:13 BP 117 / 92; Pulse 98; Resp 14; Temp 97.9(O); Pulse Ox 100% ; ag4 10:12 BP 122 / 73; Pulse 68; Resp 16; Temp 98.7; Pulse Ox 99% on R/A; kp2 14:00 BP 128 / 73; Pulse 76; Resp 16; Temp 98; kp2 11/21 21:25 Body Mass Index 41.05 (122.47 kg, 172.72 cm) la1 MDM: 11/21 21:50 Patient medically screened. pm1 11/22 00:24 Data reviewed: vital signs. Data interpreted: Pulse oximetry: on room air is 98 %. pm1 Interpretation: normal. 00:24 ED course: Pending evaluation by Dioni Rangel. pm1 15:00 ED course: Dioni Rangel recommended inpatient treatment. Pending transfer to psychiatric pm1 facility. Patient reports continued feelings of suicidal ideation with hallucinations. 11/23 02:43 ED course: Patient reports that she is suicidal and would like to have inpatient pm1 treatment for help with her depression. Therefore will wait for bed availability at a psychiatric facility. 14:50 ED course: Patient reports that she is still suicidal. She voluntarily wants to wait pm1 for a bed to get inpatient treatment for her depression and suicidal ideation. 11/24 14:41 Counseling: I had a detailed discussion with the patient and/or guardian regarding: the jr8 historical points, exam findings, and any diagnostic results supporting the discharge/admit diagnosis, lab results, the need to transfer to another facility, for higher level of care. ED course: Consulted [facility] who accepted patient for further psychiatric evaluation . 11/21 21:47 Order name: Acetaminophen ed1 11/21 21:47 Order name: Basic Metabolic Panel ed1 11/21 21:47 Order name: CBC with Diff; Complete Time: 22:43 ed1 11/21 21:47 Order name: ETOH Level; Complete Time: 22:44 ed1 11/21 21:47 Order name: Hepatic Function; Complete Time: 22:43 ed1 11/21 21:47 Order name: PT-INR; Complete Time: 22:43 ed1 11/21 21:47 Order name: Ptt, Activated; Complete Time: 22:44 ed1 11/21 21:47 Order name: Salicylate; Complete Time: 22:44 ed1 11/21 21:47 Order name: Urine Drug Screen; Complete Time: 22:44 ed1 11/21 21:47 Order name: Acetaminophen Level; Complete Time: 22:44 EDMS 11/21 21:47 Order name: Basic Metabolic Panel; Complete Time: 22:44 EDMS 11/21 22:06 Order name: Urine Dipstick--Ancillary (enter results); Complete Time: 22:44 mw2 11/21 22:06 Order name: Urine --Ancillary (enter results); Complete Time: 22:44 2 11/21 22:09 Order name: Manual Differential; Complete Time: 22:44 EDMS 11/21 21:47 Order name: Urine Test (obtain specimen); Complete Time: 21:49 ed1 11/21 21:47 Order name: EKG; Complete Time: 21:48 ed1 11/21 21:47 Order name: EKG - Nurse/Tech; Complete Time: 21:49 ed1 11/22 02:21 Order name: CBC with Diff: Draw after fluids complete; Complete Time: 03:38 ed1 11/22 08:50 Order name: Diet Regular; Complete Time: 08:50 dh3 11/22 11:50 Order name: Diet Regular; Complete Time: 11:51 sg 11/22 19:40 Order name: CBC with Diff; Complete Time: 20:16 cc3 11/23 07:26 Order name: Diet Finger Food; Complete Time: 07:27 aa5 11/23 10:07 Order name: Diet Regular; Complete Time: 10:08 ms 11/23 13:54 Order name: Diet Regular; Complete Time: 13:55 ms 11/24 07:10 Order name: Diet Regular; Complete Time: 07:11 5 11/24 07:11 Order name: Diet Regular; Complete Time: 07:11 dh3 11/24 10:04 Order name: Diet Regular; Complete Time: 10:04 5 11/21 21:47 Order name: IV Saline Lock; Complete Time: 21:49 ed1 11/21 21:47 Order name: Labs collected and sent; Complete Time: 21:49 ed1 11/21 21:47 Order name: Urine Dipstick-Ancillary (obtain specimen); Complete Time: 21:49 ed1 Administered Medications: 11/22 00:16 Drug: NS 0.9% 1000 ml Route: IV; Rate: 1000 ml; Site: left hand; ed1 02:12 Follow up: IV Status: Completed infusion; IV Intake: 1000ml ed1 00:31 Drug: NS 0.9% 1000 ml Route: IV; Rate: 1000 ml; Site: left hand; ed1 02:55 Follow up: IV Status: Completed infusion; IV Intake: 1000ml ed1 19:00 Drug: Nicoderm CQ 21 mg/24 hr 1 patches Route: Transdermal; Site: affected area; bp 19:30 Follow up: Response: No adverse reaction cc3 Disposition: 11/23/18 03:17 Transfer ordered to Psych Facility. Diagnosis is Suicidal ideations. - Reason for transfer: Specialty. - Accepting physician is Dr. Pollard. - Condition is Stable. - Problem is new. - Symptoms are unchanged. Signatures: Dispatcher [employer] EDMS Darinel Hartman, AUTOMOBILE SERVICE STATION MECHANIC AUTOMOBILE SERVICE STATION MECHANIC em Antonia Lange RN RN ed1 Kt Hyatt PA PA jr8 Andres Morse RN RN la1 Ramos Finley, SHAPER OPERATOR SHAPER OPERATOR pm1 Sohail Sarmiento RN RN bp Renate Siu cc3 Corrections: (The following items were deleted from the chart) 11/23 02:44 02:43 ED course: Patient reports that she is suicidal and would like to have inpatient pm1 treatment for help with her depression. pm1 11/24 14:46 11/23 03:17 11/23/2018 03:17 Transfer ordered to Psych Facility. Diagnosis is Suicidal jr8 ideations. Reason for transfer: Specialty. Accepting physician is Psychiatrist. Condition is Stable. Problem is new. Symptoms are unchanged. pm1 11/24 16:25 14:46 11/23/2018 03:17 Transfer ordered to Psych Facility. Diagnosis is Suicidal em ideations. Reason for transfer: Specialty. Accepting physician is Dr. Pollard. Condition is Stable. Problem is new. Symptoms are unchanged. jr8
--- NOTE | 2018-11-23 03:18 | ER ---
Nurse's Notes [facility] Name: Juana Vigil Age: 33 yrs Sex: Female : 1985 Arrival Date: 11/21/2018 Time: 21:14 Bed 20 Private MD: Diagnosis: Suicidal ideations Presentation: 11/21 21:18 Presenting complaint: Patient states: I have been feeling suicidal for a while but it la1 got much worse last, this morning I attempted to cut my wrist but the knife was not sharp enough. Pt reports being off of her meds for about 6 years and having visual and auditory hallucinations. Transition of care: patient was not received from another setting of care. Onset of symptoms was November 21, 2018. Risk Assessment: Do you want to hurt yourself or someone else? Patient reports no desire to harm self or others. Initial Sepsis Screen: Does the patient meet any 2 criteria? No. Patient's initial sepsis screen is negative. Does the patient have a suspected source of infection? No. Patient's initial sepsis screen is negative. Care prior to arrival: None. 21:18 Method Of Arrival: Ambulatory la1 21:18 Acuity: HUEY 2 la1 Historical: - Allergies: 21:18 PENICILLINS; la1 - Home Meds: 21:18 None [Active]; la1 - PMHx: 21:18 Asthma; Depression; PCOS; la1 - PSHx: 21:18 None; la1 - Immunization history:: Adult Immunizations up to date. - Social history:: Smoking status: Patient uses tobacco products, smokes one-half pack cigarettes per day. - Ebola Screening: : No symptoms or risks identified at this time. Screenin:22 Abuse screen: Denies threats or abuse. Nutritional screening: No deficits noted. la1 Tuberculosis screening: No symptoms or risk factors identified. Fall Risk None identified. Assessment: 21:25 Reassessment: PT is Transgender and prefers to be referred to as HE/HIM and name as [facility]. 22:00 General: Appears in no apparent distress. Behavior is calm, cooperative. Pain: ed1 Complains of pain in palmar aspect of left forearm Pain does not radiate. Pain currently is 4 out of 10 on a pain scale. Quality of pain is described as aching, Pain began this morning. Neuro: Level of Consciousness is awake, alert, obeys commands, Oriented to person, place, time, situation. Cardiovascular: Denies chest pain, Heart tones S1 S2 present. Respiratory: Airway is patent Respiratory effort is even, unlabored, Respiratory pattern is regular, symmetrical, Breath sounds are clear bilaterally. GI: Reports normal bowel habits, Pt states "I haven't eaten all day. Can I please get some food?" Patient currently denies diarrhea, nausea, vomiting. : Denies burning with urination. EENT: No signs and/or symptoms were reported regarding the EENT system. Derm: Skin is healthy with good turgor, Skin is dry, Skin is normal, Skin temperature is warm Wound noted palmar aspect of left forearm Wound is superficial abrasions. Musculoskeletal: Circulation, motion, and sensation intact. Range of motion: intact in all extremities, Swelling absent. 23:00 Reassessment: Patient appears in no apparent distress at this time. No changes from ed1 previously documented assessment. Patient and/or family updated on plan of care and expected duration. Pain level reassessed. Patient is alert, oriented x 3, equal unlabored respirations, skin warm/dry/pink. Patient states symptoms have not improved. 11/22 03:07 Reassessment: Pt is requesting more food and drinks at this time. I informed the ed1 patient that we are limited to what we have in the ER. Pt is refusing crackers and peanut butter. Pt states "That will make me throw up." Juice provided. 04:55 Reassessment: [facility] Screener at bedside. ed1 07:00 Reassessment: RECD REPORT FROM ANTONIA CHACON. 33YO WF WHO PREFERS TO IDENTIFY MALE, P/W bp SI AND CUTTING. SEEN BY [facility] AND RECOMMENDED INPATIENT. PT MED CLEAR AND TRANSFER PENDING. 09:56 Reassessment: PT UP AND EATING MEAL TRAY. PIV REMOVED PER PT REQUEST. STILL NO RESPONSE bp ON TRANSFER REQUESTS. 14:00 Reassessment: PT PROVIDED LUNCH TRAY. TRANSFER STILL IN PROCESS. PT RESTING QUIETLY AND bp WATCHING TV. 18:00 Reassessment: FAMILY AT B/S. PT CALM AND APPROPRIATE, BUT STILL ENDORSES SI. bp 19:15 Reassessment: Patient appears in no apparent distress at this time. Patient and/or cc3 family updated on plan of care and expected duration. Pain level reassessed. Patient is alert, oriented x 3, equal unlabored respirations, skin warm/dry/pink. Received this female patient from morning shift RN Sohail combs case of suicidal ideation, sitter at bedside. Patient calm and no complaints noted. No IV cannula in situ. Nicotine patch noted at the right upper arm. Patient denies pain at this time. 20:18 Reassessment: Patient appears in no apparent distress at this time. Patient and/or cc3 family updated on plan of care and expected duration. Pain level reassessed. Patient is alert, oriented x 3, equal unlabored respirations, skin warm/dry/pink. sitter at bedside. 21:08 Reassessment: Patient appears in no apparent distress at this time. Patient and/or cc3 family updated on plan of care and expected duration. Pain level reassessed. Patient is alert, oriented x 3, equal unlabored respirations, skin warm/dry/pink. Patient having some snacks, sitter at bedside. Patient denies pain at this time. 22:18 Reassessment: Patient appears in no apparent distress at this time. Patient and/or cc3 family updated on plan of care and expected duration. Pain level reassessed. Patient is alert, oriented x 3, equal unlabored respirations, skin warm/dry/pink. sitter at bedside. 23:25 Reassessment: Patient appears in no apparent distress at this time. Patient and/or cc3 family updated on plan of care and expected duration. Pain level reassessed. Patient is alert, oriented x 3, equal unlabored respirations, skin warm/dry/pink. sitter at bedside. 11/23 00:20 Reassessment: Patient appears in no apparent distress at this time. Patient and/or cc3 family updated on plan of care and expected duration. Pain level reassessed. Patient is alert, oriented x 3, equal unlabored respirations, skin warm/dry/pink. Sitter at bedside. Patient still awake watching TV. 01:24 Reassessment: Patient appears in no apparent distress at this time. Patient and/or cc3 family updated on plan of care and expected duration. Pain level reassessed. Patient is alert, oriented x 3, equal unlabored respirations, skin warm/dry/pink. Sitter present. Patient still awake, no complaints noted. Patient denies pain at this time. 02:16 Reassessment: Patient appears in no apparent distress at this time. Patient and/or cc3 family updated on plan of care and expected duration. Pain level reassessed. Patient is alert, oriented x 3, equal unlabored respirations, skin warm/dry/pink. Sitter present, no complaints noted. 03:22 Reassessment: Patient appears in no apparent distress at this time. Patient and/or cc3 family updated on plan of care and expected duration. Pain level reassessed. Patient is alert, oriented x 3, equal unlabored respirations, skin warm/dry/pink. Patient still awake, sitter present. 04:10 Reassessment: Patient appears in no apparent distress at this time. Sitter present, cc3 patient comfortably sleeping, kept undisturbed. 05:26 Reassessment: Patient appears in no apparent distress at this time. Sitter present, cc3 patient still sleeping comfortably. 06:18 Reassessment: Patient appears in no apparent distress at this time. Patient and/or cc3 family updated on plan of care and expected duration. Pain level reassessed. Patient is alert, oriented x 3, equal unlabored respirations, skin warm/dry/pink. Sitter present. Patient awake, no complaints noted. 07:00 Reassessment: Pt resting in bed with eyes closed, respirations even and unlabored, skin aa5 is pink/warm/dry . 08:00 Reassessment: Pt resting in bed with eyes closed, respirations even and unlabored, skin aa5 is pink/warm/dry. . 09:00 Reassessment: Pt resting with eyes closed, pt easy to awaken to verbal stimuli. Pt aa5 given breakfast tray, pt states "I'll eat it later". Pt denies pain or any complaints at this time. Offered to help with personal hygiene or assistance to the restroom, pt denied at this time, instructed to notify me or sitter if anything is needed. Notified of plan of care and awaiting acceptance to psych facility, pt verbalized understanding of long wait. . 10:00 Reassessment: Pt sitting up eating breakfast, pt tolerating well. . aa5 11:00 Reassessment: Pt resting in bed with eyes closed, respirations even and unlabored, skin aa5 is pink/warm/dry. 12:00 Reassessment: Patient is alert, oriented x 3, equal unlabored respirations, skin aa5 warm/dry/pink. Pt sitting up in bed eating lunch, pt tolerating well. . 13:00 Reassessment: Pt resting in bed with eyes closed, respirations even and unlabored, skin aa5 is pink/warm/dry . 14:00 Reassessment: Pt resting in bed with eyes closed, respirations even and unlabored, skin aa5 is pink/warm/dry . 15:00 Reassessment: Pt resting in bed with eyes closed, respirations even and unlabored, skin aa5 is pink/warm/dry. 16:00 Reassessment: Pt resting in bed with eyes closed, respirations even and unlabored, skin aa5 is pink/warm/dry. 17:00 Reassessment: Patient is alert, oriented x 3, equal unlabored respirations, skin aa5 warm/dry/pink. Pt sitting up in bed . 18:00 Reassessment: Patient is alert, oriented x 3, equal unlabored respirations, skin aa5 warm/dry/pink. Pt sitting up in bed. . 19:30 Reassessment: Patient appears in no apparent distress at this time. Patient is alert, lp1 oriented x 3, equal unlabored respirations, skin warm/dry/pink. Reassessment: When asked about any hallucinations patient states, "That's why I just sleep all of the time, so I don't have to deal with it". General: Behavior is calm, cooperative. Cardiovascular:. 19:51 Reassessment: Patient given sandwich and juice at this time. lp1 21:00 Reassessment: Patient is alert, oriented x 3, equal unlabored respirations, skin lp1 warm/dry/pink. Patient lying down in bed. 23:00 Reassessment: Patient appears in no apparent distress at this time. No changes from lp1 previously documented assessment. 11/24 01:00 Reassessment: Patient resting, eyes closed, respirations unlabored; Sitter at bedside. lp1 03:00 Reassessment: Patient appears in no apparent distress at this time. No changes from lp1 previously documented assessment. 06:30 Reassessment: Patient appears in no apparent distress at this time. Patient resting, lp1 eyes closed, respirations unlabored. 07:15 Reassessment: Patient appears in no apparent distress at this time. Patient and/or em family updated on plan of care and expected duration. Pain level reassessed. Patient is alert, oriented x 3, equal unlabored respirations, skin warm/dry/pink. reports auditory hallucinations, currently wants help, reports being suicidal at this time Patient denies pain at this time. 09:05 Reassessment: patient resting on bed awake, using mobile phone. respirations unlabored, kp2 skin warm and dry.. 10:17 Reassessment: patient removed the pull tab of soda can,informed RN Darinel,retrieved pull kp2 tab from patient. Patient states that " Im not gonna hurt myself, my boyfriend is on video call". tray moved at the end of the room and thrown contents at trash.. 10:57 Reassessment: patient awake asked for food, given some apple juice, turkey sandwich and kp2 chips. not in distress. no complaints of pain.. 11:29 Reassessment: patient sitting on the chair having lunch. alert, oriented and no kp2 complaints of pain.. 12:01 Reassessment: patient sitting on a chair watching tv. Accompanied patient to the 2 restroom. Not in any distress,no complaints of pain. Patient is calm and cooperative.. 12:30 Reassessment: patient sitting on the chair, talking on the phone while eating. Not in kp2 any distress, no complaints of pain. Patient is cooperative, calm behaviour.. 13:06 Reassessment: patient sitting on a chair, using her mobile phone. not in any distress kp2 or complains of pain.. 14:00 Reassessment: patient sitting on the chair, talking on the phone. patient ask for juice kp2 and given one. no complaints of pain,not in distress. patient cooperative and in a calm behaviour.. 14:44 Reassessment: patient went back to the bed, still using her phone .no complaints of kp2 pain, not in distress. patient is calm.. 14:48 Reassessment: patient has some visitors. pleasant and accommodating.. kp2 15:26 Reassessment: patients visitors left. patient cried and settled on the bed.. kp2 15:42 Reassessment: gave report to Gurvinder from [facility], pending EMS transportation. em Psych: 11/21 21:20 Subjective: Patient's mood is sad, Delusions are denied, Hallucinations are auditory, la1 visual, Having thoughts of suicide. Plan for suicide is cutting self. Objective: Patient is cooperative, Speech is normal, Affect is appropriate, Patient has mutilated themselves by cuts to left wrist, minor. Interventions: Removed personal items and placed in bag. Suicide Risk Assessment: Sad Person Scale: Sex of patient: Female: Score 0 points. Age of patient: Score 1 point if patient 15-34. Depression: Score 1 point if signs of depression are present. Previous Attempt: Score 1 point if patient has previously attempted suicide. Substance Abuse: Score 0 point if patient does not abuse alcohol or drugs. Rational Thinking: Score 0 point if patient has rational thinking. Social Support: Score 0 if social support is present/available. Organized Plan: Score 1 point if patient had a plan in place. Relationship: Score 0 point if patient has a spouse or domestic partner. Chronic Sickness: Score 1 point if patient has illness, chronic, debilitating, or severe. TOTAL POINTS: If total points are 3-4, proposed clinical action is close follow-up/consider hospitalization. Pt denies substance abuse. Commitment: Patient will be a voluntary commitment. 11/24 09:00 Safety Checks: Personal items have been removed. Door is closed to patient's room. No kp2 visitors are present at this time. 09:15 Safety Checks: Personal items have been removed. Door is closed to patient's room. No em visitors are present at this time. 09:30 Safety Checks: Personal items have been removed. Door is closed to patient's room. No em visitors are present at this time. 09:45 Safety Checks: Personal items have been removed. Door is closed to patient's room. No em visitors are present at this time. 10:00 Safety Checks: Personal items have been removed. Door is closed to patient's room. No em visitors are present at this time. 10:15 Safety Checks: Personal items have been removed. Door is closed to patient's room. No em visitors are present at this time. 10:30 Safety Checks: Personal items have been removed. Door is closed to patient's room. No em visitors are present at this time. 10:45 Safety Checks: Personal items have been removed. Door is open. No visitors are present em at this time. 11:00 Safety Checks: Personal items have been removed. Door is open. No visitors are present em at this time. 11:27 Safety Checks: Personal items have been removed. Door is open. No visitors are present kp2 at this time. pt having lunch at this time. 13:30 Safety Checks: Personal items have been removed. Door is closed to patient's room. No em visitors are present at this time. 15:29 Safety Checks:. em5 Vital Signs: 11/21 21:25 Temp 97.4; Pulse Ox 100% on R/A; Weight 122.47 kg; Height 5 ft. 8 in. (172.72 cm); Pain la1 4/10; 21:26 BP 131 / 91; la1 23:54 BP 100 / 58; Pulse 89; Resp 14; Temp 98.3(O); Pulse Ox 98% on R/A; ed1 11/22 06:35 BP 117 / 92; Pulse 81; Resp 14; Temp 97.8(O); Pulse Ox 98% ; ag4 10:00 BP 118 / 82; Pulse 67; Resp 18; Temp 97.7(O); Pulse Ox 99% on R/A; dh3 14:00 BP 120 / 81; Pulse 72; Resp 17; Temp 98.1(O); Pulse Ox 100% on R/A; dh3 18:00 BP 122 / 82; Pulse 71; Resp 17; Temp 98.5(O); Pulse Ox 99% on R/A; dh3 22:46 BP 116 / 80; Pulse 64; Resp 16; Pulse Ox 99% on R/A; mt 11/23 06:45 BP 133 / 78; Pulse 70; Resp 18; Pulse Ox 100% on R/A; oe 11:00 BP 129 / 76; Pulse 68; Resp 18; Pulse Ox 100% ; ms 19:57 BP 128 / 78; Pulse 80; Resp 14; Temp 98.5(O); Pulse Ox 99% on R/A; ag4 11/24 07:13 BP 117 / 92; Pulse 98; Resp 14; Temp 97.9(O); Pulse Ox 100% ; ag4 10:12 BP 122 / 73; Pulse 68; Resp 16; Temp 98.7; Pulse Ox 99% on R/A; kp2 14:00 BP 128 / 73; Pulse 76; Resp 16; Temp 98; kp2 11/21 21:25 Body Mass Index 41.05 (122.47 kg, 172.72 cm) la1 ED Course: 11/21 21:14 Patient arrived in ED. am2 21:20 Triage completed. la1 21:20 Arm band placed on right wrist. la1 21:22 Call light in reach. la1 21:31 Safety Checks: Personal items have been removed. The door is open or patient has been ed1 placed in a hallway bed/chair. There are no family/friend visitors at this time Sitter present at this time. 21:45 Safety Checks: Personal items have been removed. The door is open or patient has been ed1 placed in a hallway bed/chair. There are no family/friend visitors at this time Sitter present at this time. 21:46 Antonia Lange, RN is Primary Nurse. ed1 21:47 Initial lab(s) drawn, by ks, sent to lab. Urine collected: clean catch specimen, clear. ed1 Inserted saline lock: 24 gauge in left hand, using aseptic technique. Blood collected. 21:50 Ramos Finley NP is PHCP. pm1 21:50 Faheem Soto MD is Attending Physician. pm1 21:57 EKG done, by ED staff, reviewed by Faheem Soto MD. ag4 22:00 Safety Checks: Personal items have been removed. The door is open or patient has been ed1 placed in a hallway bed/chair. There are no family/friend visitors at this time Sitter present at this time. 22:00 Safety checks: Items removed: yes. Door open/sign placed on door: yes. Family/friend ag4 present: yes. Sitter present: Yes. 22:09 Notified Nurse Practitioner and/or Physician Manager Of Compliance of a critical lab result(s), WBC ed1 20.6. 22:15 Safety checks: Items removed: yes. Door open/sign placed on door: yes. Family/friend ag4 present: yes. Sitter present: Yes. 22:30 Safety checks: Items removed: yes. Door open/sign placed on door: yes. Family/friend ag4 present: yes. Sitter present: Yes. 22:45 Safety Checks: Personal items have been removed. The door is open or patient has been ed1 placed in a hallway bed/chair. A family member and/or friend is present and encouraged to stay. Sitter present at this time. 22:45 Safety checks: Items removed: yes. Door open/sign placed on door: yes. Family/friend ag4 present: yes. Sitter present: Yes. 23:00 Safety checks: Items removed: yes. Door open/sign placed on door: yes. Family/friend ag4 present: yes. Sitter present: Yes. 23:00 No provider procedures requiring assistance completed. ed1 23:15 Safety checks: Items removed: yes. Door open/sign placed on door: yes. Family/friend ag4 present: yes. Sitter present: Yes. 23:30 Safety checks: Items removed: yes. Door open/sign placed on door: yes. Family/friend ag4 present: yes. Sitter present: Yes. 23:45 PO fluids given. Snack given. ed1 11/22 00:00 Safety checks: Items removed: yes. Door open/sign placed on door: yes. Family/friend ag4 present: yes. Sitter present: Yes. 00:07 Acetaminophen Sent. ed1 00:07 Basic Metabolic Panel Sent. ed1 00:15 Safety checks: Items removed: yes. Door open/sign placed on door: yes. Family/friend ag4 present: yes. Sitter present: Yes. 00:30 Safety checks: Items removed: yes. Door open/sign placed on door: yes. Family/friend ag4 present: yes. Sitter present: Yes. 00:45 Safety checks: Items removed: yes. Door open/sign placed on door: yes. Family/friend ag4 present: yes. Sitter present: Yes. 01:00 Safety checks: Items removed: yes. Door open/sign placed on door: yes. Family/friend ag4 present: yes. Sitter present: Yes. 01:15 Safety checks: Items removed: yes. Door open/sign placed on door: yes. Family/friend ag4 present: yes. Sitter present: Yes. 01:30 Safety checks: Items removed: yes. Door open/sign placed on door: yes. Family/friend ag4 present: yes. Sitter present: Yes. 01:45 Safety checks: Items removed: yes. Door open/sign placed on door: yes. Family/friend ag4 present: yes. Sitter present: Yes. 02:00 Safety checks: Items removed: yes. Door open/sign placed on door: yes. Family/friend ag4 present: yes. Sitter present: Yes. 02:15 Safety checks: Items removed: yes. Door open/sign placed on door: yes. Family/friend ag4 present: yes. Sitter present: Yes. 02:30 Safety checks: Items removed: yes. Door open/sign placed on door: yes. Family/friend ag4 present: yes. Sitter present: Yes. 02:45 Safety checks: Items removed: yes. Door open/sign placed on door: yes. Family/friend ag4 present: yes. Sitter present: Yes. 03:00 Safety checks: Items removed: yes. Door open/sign placed on door: yes. Family/friend ag4 present: yes. Sitter present: Yes. 03:15 Safety checks: Items removed: yes. Door open/sign placed on door: yes. Family/friend ag4 present: yes. Sitter present: Yes. 03:30 Safety checks: Items removed: yes. Door open/sign placed on door: yes. Family/friend ag4 present: yes. Sitter present: Yes. 03:45 Safety checks: Items removed: yes. Door open/sign placed on door: yes. Family/friend ag4 present: yes. Sitter present: Yes. 04:00 Safety checks: Items removed: yes. Door open/sign placed on door: yes. Family/friend ag4 present: yes. Sitter present: Yes. 04:15 Safety checks: Items removed: yes. Door open/sign placed on door: yes. Family/friend ag4 present: no. Sitter present: Yes. 04:30 Safety checks: Items removed: yes. Door open/sign placed on door: yes. Family/friend ag4 present: yes. Sitter present: Yes. 04:45 Safety checks: Items removed: yes. Door open/sign placed on door: yes. Family/friend ag4 present: no. Sitter present: Yes. 05:00 Safety checks: Items removed: yes. Door open/sign placed on door: yes. Family/friend ag4 present: no. Sitter present: Yes. 05:15 Safety checks: Items removed: yes. Door open/sign placed on door: yes. Family/friend ag4 present: no. Sitter present: Yes. 05:30 Safety checks: Items removed: yes. Door open/sign placed on door: yes. Family/friend ag4 present: no. Sitter present: Yes. 05:45 Safety checks: Items removed: no. Reason for not removing items: Door open/sign placed ag4 on door: yes. Family/friend present: no. Sitter present: Yes. 06:15 Safety checks: Items removed: yes. Door open/sign placed on door: yes. Family/friend ag4 present: no. Sitter present: Yes. Safety checks: Items removed: yes. Door open/sign placed on door: yes. Family/friend present: no. Sitter present: Yes. 06:30 Safety checks: Items removed: yes. Door open/sign placed on door: yes. Family/friend ag4 present: no. Sitter present: Yes. 06:45 Safety checks: Items removed: yes. Door open/sign placed on door: yes. Family/friend ag4 present: no. Sitter present: Yes. 07:00 Safety checks: Items removed: yes. Door open/sign placed on door: yes. Family/friend dh3 present: no. Sitter present: Yes. 07:02 Primary Nurse role handed off by Antonia Lange, RN ed1 07:03 Sohail Sarmiento, INES is Primary Nurse. bp 07:15 Safety checks: Items removed: yes. Door open/sign placed on door: yes. Family/friend dh3 present: no. Sitter present: Yes. 07:30 Safety checks: Items removed: yes. Door open/sign placed on door: yes. Family/friend dh3 present: no. Sitter present: Yes. 07:45 Safety checks: Items removed: yes. Door open/sign placed on door: yes. Family/friend dh3 present: no. Sitter present: Yes. 08:00 Safety checks: Items removed: yes. Door open/sign placed on door: yes. Family/friend dh3 present: no. Sitter present: Yes. 08:15 Safety checks: Items removed: yes. Door open/sign placed on door: yes. Family/friend dh3 present: no. Sitter present: Yes. 08:30 Safety checks: Items removed: yes. Door open/sign placed on door: yes. Family/friend dh3 present: no. Sitter present: Yes. 08:45 Safety checks: Items removed: yes. Door open/sign placed on door: yes. Family/friend dh3 present: no. Sitter present: Yes. 09:00 Safety checks: Items removed: yes. Door open/sign placed on door: yes. Family/friend dh3 present: no. Sitter present: Yes. 09:15 Safety checks: Items removed: yes. Door open/sign placed on door: yes. Family/friend dh3 present: no. Sitter present: Yes. 09:30 Safety checks: Items removed: yes. Door open/sign placed on door: yes. Family/friend dh3 present: no. Sitter present: Yes. 09:45 Safety checks: Items removed: yes. Door open/sign placed on door: yes. Family/friend dh3 present: no. Sitter present: Yes. 10:00 Safety checks: Items removed: yes. Door open/sign placed on door: yes. Family/friend dh3 present: no. Sitter present: Yes. 10:05 IV discontinued, intact, bleeding controlled, No redness/swelling at site. Pressure bp dressing applied. 10:15 Safety checks: Items removed: yes. Door open/sign placed on door: yes. Family/friend dh3 present: no. Sitter present: Yes. 10:30 Safety checks: Items removed: yes. Door open/sign placed on door: yes. Family/friend dh3 present: no. Sitter present: Yes. 10:45 Safety checks: Items removed: yes. Door open/sign placed on door: yes. Family/friend dh3 present: no. Sitter present: Yes. 11:00 Safety checks: Items removed: yes. Door open/sign placed on door: yes. Family/friend dh3 present: no. Sitter present: Yes. 11:15 Safety checks: Items removed: yes. Door open/sign placed on door: yes. Family/friend dh3 present: no. Sitter present: Yes. 11:30 Safety checks: Items removed: yes. Door open/sign placed on door: yes. Family/friend dh3 present: no. Sitter present: Yes. 11:45 Safety checks: Items removed: yes. Door open/sign placed on door: yes. Family/friend dh3 present: no. Sitter present: Yes. 12:00 Safety checks: Items removed: yes. Door open/sign placed on door: yes. Family/friend dh3 present: no. Sitter present: Yes. 12:15 Safety checks: Items removed: yes. Door open/sign placed on door: yes. Family/friend jb1 present: yes. Family/friends encouraged to stay with patient. Sitter present: Yes. 12:30 Safety checks: Items removed: yes. Door open/sign placed on door: yes. Family/friend jb1 present: yes. Family/friends encouraged to stay with patient. Sitter present: Yes. 12:45 Safety checks: Items removed: yes. Door open/sign placed on door: yes. Family/friend mt present: yes. Sitter present: Yes. 13:00 Safety checks: Items removed: yes. Door open/sign placed on door: yes. Family/friend dh3 present: yes. Family/friends encouraged to stay with patient. Sitter present: Yes. 13:15 Safety checks: Items removed: yes. Door open/sign placed on door: yes. Family/friend dh3 present: yes. Family/friends encouraged to stay with patient. Sitter present: Yes. 13:30 Safety checks: Items removed: yes. Door open/sign placed on door: yes. Family/friend dh3 present: no. Sitter present: Yes. 13:45 Safety checks: Items removed: yes. Door open/sign placed on door: yes. Family/friend dh3 present: no. Sitter present: Yes. 14:00 Safety checks: Items removed: yes. Door open/sign placed on door: yes. Family/friend dh3 present: no. Sitter present: Yes. 14:15 Safety checks: Items removed: yes. Door open/sign placed on door: yes. Family/friend dh3 present: no. Sitter present: Yes. 14:30 Safety checks: Items removed: yes. Door open/sign placed on door: yes. Family/friend dh3 present: no. Sitter present: Yes. 14:45 Safety checks: Items removed: yes. Door open/sign placed on door: yes. Family/friend dh3 present: no. Sitter present: Yes. 15:00 Safety checks: Items removed: yes. Door open/sign placed on door: yes. Family/friend dh3 present: no. Sitter present: Yes. 15:15 Safety checks: Items removed: yes. Door open/sign placed on door: yes. Family/friend dh3 present: no. Sitter present: Yes. 15:30 Safety checks: Items removed: yes. Door open/sign placed on door: yes. Family/friend dh3 present: no. Sitter present: Yes. 15:45 Safety checks: Items removed: yes. Door open/sign placed on door: yes. Family/friend dh3 present: no. Sitter present: Yes. 16:00 Safety checks: Items removed: yes. Door open/sign placed on door: yes. Family/friend dh3 present: no. Sitter present: Yes. 16:15 Safety checks: Items removed: yes. Door open/sign placed on door: yes. Family/friend dh3 present: no. Sitter present: Yes. 16:30 Safety checks: Items removed: yes. Door open/sign placed on door: yes. Family/friend dh3 present: no. Sitter present: Yes. 16:45 Safety checks: Items removed: yes. Door open/sign placed on door: yes. Family/friend dh3 present: no. Sitter present: Yes. 16:49 Angela from [facility] called asking if we could repeat the CBC on the patient eb since the last one draw at 3am the wbc was elevated. When the repeat is resulted to please fax the results to the intake department. 17:00 Safety checks: Items removed: yes. Door open/sign placed on door: yes. Family/friend dh3 present: no. Sitter present: Yes. 17:15 Safety checks: Items removed: yes. Door open/sign placed on door: yes. Family/friend dh3 present: no. Sitter present: Yes. 17:30 Safety checks: Items removed: yes. Door open/sign placed on door: yes. Family/friend dh3 present: yes. Family/friends encouraged to stay with patient. Sitter present: Yes. 17:45 Safety checks: Items removed: yes. Door open/sign placed on door: yes. Family/friend dh3 present: yes. Family/friends encouraged to stay with patient. Sitter present: Yes. 18:00 Safety checks: Items removed: yes. Door open/sign placed on door: yes. Family/friend dh3 present: yes. Family/friends encouraged to stay with patient. Sitter present: Yes. 18:15 Safety checks: Items removed: yes. Door open/sign placed on door: yes. Family/friend dh3 present: yes. Family/friends encouraged to stay with patient. Sitter present: Yes. 18:30 Safety checks: Items removed: yes. Door open/sign placed on door: yes. Family/friend dh3 present: yes. Family/friends encouraged to stay with patient. Sitter present: Yes. 18:45 Safety checks: Items removed: yes. Door open/sign placed on door: yes. Family/friend dh3 present: yes. Family/friends encouraged to stay with patient. Sitter present: Yes. 19:00 Safety checks: Items removed: yes. Door open/sign placed on door: yes. Family/friend dh3 present: yes. Family/friends encouraged to stay with patient. Sitter present: Yes. 19:15 Safety checks: Items removed: yes. Door open/sign placed on door: yes. Family/friend mt present: no. Sitter present: Yes. 19:30 Safety checks: Items removed: yes. Door open/sign placed on door: yes. Family/friend mt present: no. Sitter present: Yes. 19:45 Safety checks: Items removed: yes. Door open/sign placed on door: yes. Family/friend mt present: no. Sitter present: Yes. 19:51 Repeat lab(s) drawn. by me, sent to lab. mt 20:00 Safety checks: Items removed: yes. Door open/sign placed on door: yes. Family/friend mt present: no. Sitter present: Yes. 20:15 Safety checks: Items removed: yes. Door open/sign placed on door: yes. Family/friend mt present: no. Sitter present: Yes. 20:30 Safety checks: Items removed: yes. Door open/sign placed on door: yes. Family/friend ag4 present: no. Sitter present: Yes. 20:45 Safety checks: Items removed: yes. Door open/sign placed on door: yes. Family/friend ag4 present: no. Sitter present: Yes. 21:00 Safety checks: Items removed: yes. Door open/sign placed on door: yes. Family/friend ag4 present: no. Sitter present: Yes. 21:15 Safety checks: Items removed: yes. Door open/sign placed on door: yes. Family/friend ag4 present: no. Sitter present: Yes. 21:30 Safety checks: Items removed: yes. Door open/sign placed on door: yes. Family/friend mt present: no. Sitter present:. 21:45 Safety checks: Items removed: yes. Door open/sign placed on door: yes. Family/friend mt present: no. Sitter present: Yes. 22:00 Safety checks: Items removed: yes. Door open/sign placed on door: yes. Family/friend mt present: no. Sitter present: Yes. 22:15 Safety checks: Items removed: yes. Door open/sign placed on door: yes. Family/friend mt present: no. Sitter present: Yes. 22:30 Safety checks: Items removed: yes. Door open/sign placed on door: yes. Family/friend mt present: no. Sitter present: Yes. 22:45 Safety checks: Items removed: yes. Door open/sign placed on door: yes. Family/friend mt present: no. Sitter present: Yes. 23:00 Safety checks: Items removed: yes. Door open/sign placed on door: yes. Family/friend mt present: no. Sitter present: Yes. 23:15 Safety checks: Items removed: yes. Door open/sign placed on door: yes. Family/friend mt present: no. Sitter present: Yes. 23:30 Safety checks: Items removed: yes. Door open/sign placed on door: yes. Family/friend mt present: no. Sitter present: Yes. 23:45 Safety checks: Items removed: yes. Door open/sign placed on door: yes. Family/friend mt present: no. Sitter present: Yes. 11/23 00:00 Safety checks: Items removed: yes. Door open/sign placed on door: yes. Family/friend mt present: no. Sitter present: Yes. 00:15 Safety checks: Items removed: yes. Door open/sign placed on door: yes. Family/friend mt present: no. Sitter present: Yes. 00:30 Safety checks: Items removed: yes. Door open/sign placed on door: yes. Family/friend mt present: no. Sitter present: Yes. 00:45 Safety checks: Items removed: yes. Door open/sign placed on door: yes. Family/friend mt present: no. Sitter present: Yes. 01:00 Safety checks: Items removed: yes. Door open/sign placed on door: yes. Family/friend mt present: no. Sitter present: Yes. 01:15 Safety checks: Items removed: yes. Door open/sign placed on door: yes. Family/friend oe present: no. Sitter present: Yes. 01:30 Safety checks: Items removed: yes. Door open/sign placed on door: yes. Family/friend oe present: no. Sitter present: Yes. 01:45 Safety checks: Items removed: yes. Door open/sign placed on door: yes. Family/friend oe present: no. Sitter present: Yes. 02:00 Safety checks: Items removed: yes. Door open/sign placed on door: yes. Family/friend oe present: no. Sitter present: Yes. 02:15 Safety checks: Items removed: yes. Door open/sign placed on door: yes. Family/friend oe present: no. Sitter present: Yes. 02:30 Safety checks: Items removed: yes. Door open/sign placed on door: yes. Family/friend oe present: no. Sitter present: Yes. 02:45 Safety checks: Items removed: yes. Door open/sign placed on door: yes. Family/friend oe present: no. Sitter present: Yes. 03:00 Safety checks: Items removed: yes. Door open/sign placed on door: yes. Family/friend oe present: no. Sitter present: Yes. 03:15 Safety checks: Items removed: yes. Door open/sign placed on door: yes. Family/friend oe present: no. Sitter present: Yes. 03:30 Safety checks: Items removed: yes. Door open/sign placed on door: yes. Family/friend oe present: no. Sitter present: Yes. 03:45 Safety checks: Items removed: yes. Door open/sign placed on door: yes. Family/friend oe present: no. Sitter present: Yes. 04:00 Safety checks: Items removed: yes. Door open/sign placed on door: yes. Family/friend oe present: no. Sitter present: Yes. 04:15 Safety checks: Items removed: yes. Door open/sign placed on door: yes. Family/friend oe present: no. Sitter present: Yes. 04:30 Safety checks: Items removed: yes. Door open/sign placed on door: yes. Family/friend oe present: no. Sitter present: Yes. 04:45 Safety checks: Items removed: yes. Door open/sign placed on door: yes. Family/friend oe present: no. Sitter present: Yes. 05:00 Safety checks: Items removed: yes. Door open/sign placed on door: yes. Family/friend oe present: no. Sitter present: Yes. 05:13 Primary Nurse role handed off by Sohail Sarmiento RN ed1 05:15 Safety checks: Items removed: yes. Door open/sign placed on door: yes. Family/friend oe present: no. Sitter present:. 05:30 Safety checks: Items removed: yes. Door open/sign placed on door: yes. Family/friend oe present: no. Sitter present: Yes. 05:45 Safety checks: Items removed: yes. Door open/sign placed on door: yes. Family/friend oe present: no. Sitter present: Yes. 06:00 Safety checks: Items removed: yes. Door open/sign placed on door: yes. Family/friend oe present: no. Sitter present: Yes. 06:15 Safety checks: Items removed: yes. Door open/sign placed on door: yes. Family/friend oe present: no. Sitter present: Yes. 06:30 Safety checks: Items removed: yes. Door open/sign placed on door: yes. Family/friend oe present: no. Sitter present: Yes. 06:45 Safety checks: Items removed: yes. Door open/sign placed on door: yes. Family/friend oe present: no. Sitter present: Yes. 07:00 Safety checks: Items removed: yes. Door open/sign placed on door: yes. Family/friend ms present: no. Sitter present: Yes. 07:00 Report given to INES Telles. cc3 07:00 Report received from Pt's care will be continued by me. aa5 07:15 Safety checks: Items removed: yes. Door open/sign placed on door: yes. Family/friend ms present: no. Sitter present: Yes. 07:23 Zahra Garrett RN is Primary Nurse. aa5 07:30 Safety checks: Items removed: yes. Door open/sign placed on door: yes. Family/friend ms present: no. Sitter present: Yes. 07:45 Safety checks: Items removed: yes. Door open/sign placed on door: yes. Family/friend ms present: no. Sitter present: Yes. 08:00 Safety checks: Items removed: yes. Door open/sign placed on door: yes. Family/friend ms present: no. Sitter present: Yes. 08:15 Safety checks: Items removed: yes. Door open/sign placed on door: yes. Family/friend ms present: no. Sitter present: Yes. 08:30 Safety checks: Items removed: yes. Door open/sign placed on door: yes. Family/friend ms present: no. Sitter present: Yes. 08:45 Safety checks: Items removed: yes. Door open/sign placed on door: yes. Family/friend ms present: no. Sitter present: Yes. 09:00 Safety checks: Items removed: yes. Door open/sign placed on door: yes. Family/friend ms present: no. Sitter present: Yes. 09:15 Safety checks: Items removed: yes. Door open/sign placed on door: yes. Family/friend ms present: no. Sitter present: Yes. 09:30 Safety checks: Items removed: yes. Door open/sign placed on door: yes. Family/friend ms present: no. Sitter present: Yes. 09:45 Safety checks: Items removed: yes. Door open/sign placed on door: yes. Family/friend ms present: no. Sitter present: Yes. 09:50 Diet tray given. ms 10:00 Safety checks: Items removed: yes. Door open/sign placed on door: yes. Family/friend ms present: no. Sitter present: Yes. 10:09 Diet tray ordered. diet tray ordered for lunch. ms 10:15 Safety checks: Items removed: yes. Door open/sign placed on door: yes. Family/friend ms present: no. Sitter present: Yes. 10:30 Safety checks: Items removed: yes. Door open/sign placed on door: yes. Family/friend ms present: no. Sitter present: Yes. 10:45 Safety checks: Items removed: yes. Door open/sign placed on door: yes. Family/friend ms present: no. Sitter present: Yes. 11:00 Safety checks: Items removed: yes. Door open/sign placed on door: yes. Family/friend ms present: no. Sitter present: Yes. 11:15 Safety checks: Items removed: yes. Door open/sign placed on door: yes. Family/friend ms present: no. Sitter present: Yes. 11:30 Safety checks: Items removed: yes. Door open/sign placed on door: yes. Family/friend ms present: no. Sitter present: Yes. 11:45 Safety checks: Items removed: yes. Door open/sign placed on door: yes. Family/friend ms present: no. Sitter present: Yes. 12:05 Diet tray given. ms 12:15 Safety checks: Items removed: yes. Door open/sign placed on door: yes. Family/friend em1 present: no. Sitter present: Yes. 12:32 Safety checks: Items removed: yes. Door open/sign placed on door: yes. Family/friend em1 present: no. Sitter present: Yes. 12:45 Safety checks: Items removed: yes. Door open/sign placed on door: yes. Family/friend ms present: no. Sitter present: Yes. 13:00 Safety checks: Items removed: yes. Door open/sign placed on door: yes. Family/friend ms present: no. Sitter present: Yes. 13:15 Safety checks: Items removed: yes. Door open/sign placed on door: yes. Family/friend ms present: no. Sitter present: Yes. 13:30 Safety checks: Items removed: yes. Door open/sign placed on door: yes. Family/friend ms present: no. Sitter present: Yes. Diet: Patient given snack. Patient given juice. 13:45 Safety checks: Items removed: yes. Door open/sign placed on door: yes. Family/friend ms present: no. Sitter present: Yes. 14:00 Safety checks: Items removed: no. Reason for not removing items: Door open/sign placed ms on door: yes. Family/friend present: no. Sitter present: Yes. 14:15 Safety checks: Items removed: yes. Door open/sign placed on door: yes. Family/friend ms present: no. Sitter present: Yes. 14:30 Safety checks: Items removed: yes. Door open/sign placed on door: yes. Family/friend ms present: no. Sitter present: Yes. 14:40 Assisted to bathroom. ms 14:45 Safety checks: Items removed: yes. Door open/sign placed on door: yes. Family/friend ms present: no. Sitter present: Yes. 15:00 Safety checks: Items removed: yes. Door open/sign placed on door: Family/friend ms present: no. Sitter present: Yes. 15:15 Safety checks: Items removed: yes. Door open/sign placed on door: yes. Family/friend ms present: no. Sitter present: Yes. 15:30 Safety checks: Items removed: yes. Door open/sign placed on door: yes. Family/friend ms present: no. Sitter present: Yes. 15:35 Diet tray given. Diet: Patient given a regular meal tray. ms 15:45 Safety checks: Items removed: yes. Door open/sign placed on door: yes. Family/friend ms present: no. Sitter present: Yes. 16:00 Safety checks: Items removed: yes. Door open/sign placed on door: yes. Family/friend ms present: no. Sitter present: Yes. 16:15 Safety checks: Items removed: yes. Door open/sign placed on door: yes. Family/friend ms present: no. Sitter present: Yes. 16:30 Safety checks: Items removed: yes. Door open/sign placed on door: yes. Family/friend ms present: no. Sitter present: Yes. 16:45 Safety checks: Items removed: yes. Door open/sign placed on door: yes. Family/friend ms present: no. Sitter present: Yes. 17:00 Safety checks: Items removed: yes. Door open/sign placed on door: yes. Family/friend ms present: no. Sitter present: Yes. 17:15 Safety checks: Items removed: yes. Door open/sign placed on door: yes. Family/friend ms present: no. Sitter present: Yes. 17:30 Safety checks: Items removed: yes. Door open/sign placed on door: yes. Family/friend ms present: no. Sitter present: Yes. 17:45 Safety checks: Items removed: yes. Door open/sign placed on door: yes. Family/friend ms present: no. Sitter present: Yes. 18:00 Safety checks: Items removed: yes. Door open/sign placed on door: yes. Family/friend ms present: no. Sitter present: Yes. 18:15 Assisted to bathroom. ms 18:15 Safety checks: Items removed: yes. Door open/sign placed on door: yes. Family/friend ms present: no. Sitter present: Yes. 18:30 Safety checks: Items removed: yes. Door open/sign placed on door: yes. Family/friend ms present: no. Sitter present: Yes. 18:45 Safety checks: Items removed: yes. Door open/sign placed on door: yes. Family/friend ms present: no. Sitter present: Yes. 19:00 Safety checks: Items removed: yes. Door open/sign placed on door: yes. Family/friend ag4 present: no. Sitter present: Yes. 19:00 Report given to Cinthia Gruber RN. aa5 19:15 Safety checks: Items removed: yes. Door open/sign placed on door: yes. Family/friend ag4 present: no. Sitter present: Yes. 19:30 Safety checks: Items removed: yes. Door open/sign placed on door: yes. Family/friend ag4 present: no. Sitter present: Yes. 19:45 Safety checks: Items removed: yes. Door open/sign placed on door: yes. Family/friend ag4 present: no. Sitter present: Yes. 20:00 Safety checks: Items removed: yes. Door open/sign placed on door: yes. Family/friend ag4 present: no. Sitter present: Yes. 20:15 Safety checks: Items removed: yes. Door open/sign placed on door: yes. Family/friend ag4 present: no. Sitter present: Yes. 20:30 Safety checks: Items removed: yes. Door open/sign placed on door: yes. Family/friend ag4 present: no. Sitter present: Yes. 20:45 Safety checks: Items removed: yes. Door open/sign placed on door: yes. Family/friend ag4 present: no. Sitter present: Yes. 21:00 Safety checks: Items removed: yes. Door open/sign placed on door: yes. Family/friend ag4 present: no. Sitter present: Yes. 21:15 Safety checks: Items removed: yes. Door open/sign placed on door: yes. Family/friend ag4 present: no. Sitter present: Yes. 21:30 Safety checks: Items removed: yes. Door open/sign placed on door: yes. Family/friend ag4 present: no. Sitter present: Yes. 21:45 Safety checks: Items removed: yes. Door open/sign placed on door: yes. Family/friend ag4 present: no. Sitter present: Yes. 22:00 Safety checks: Items removed: yes. Door open/sign placed on door: yes. Family/friend ag4 present: no. Sitter present: Yes. 22:15 Safety checks: Items removed: yes. Door open/sign placed on door: yes. Family/friend ag4 present: no. Sitter present: Yes. 22:30 Safety checks: Items removed: yes. Door open/sign placed on door: yes. Family/friend ag4 present: no. Sitter present: Yes. 22:45 Safety checks: Items removed: yes. Door open/sign placed on door: yes. Family/friend ag4 present: no. Sitter present: Yes. 23:15 Safety checks: Items removed: yes. Door open/sign placed on door: yes. Family/friend ag4 present: no. Sitter present: Yes. 23:30 Safety checks: Items removed: yes. Door open/sign placed on door: yes. Family/friend ag4 present: no. Sitter present: Yes. 23:45 Safety checks: Items removed: yes. Door open/sign placed on door: yes. Family/friend ag4 present: no. Sitter present: Yes. 11/24 00:00 Safety checks: Items removed: yes. Door open/sign placed on door: yes. Family/friend ag4 present: no. Sitter present: Yes. 00:15 Safety checks: Items removed: yes. Door open/sign placed on door: yes. Family/friend ag4 present: no. Sitter present: Yes. 00:30 Safety checks: Items removed: yes. Door open/sign placed on door: yes. Family/friend ag4 present: no. Sitter present: Yes. 00:45 Safety checks: Items removed: yes. Door open/sign placed on door: yes. Family/friend ag4 present: no. Sitter present: Yes. 01:00 Safety checks: Items removed: yes. Door open/sign placed on door: yes. Family/friend ag4 present: no. Sitter present: Yes. 01:15 Safety checks: Items removed: yes. Door open/sign placed on door: yes. Family/friend ag4 present: no. Sitter present: Yes. 01:30 Safety checks: Items removed: yes. Door open/sign placed on door: yes. Family/friend ag4 present: no. Sitter present: Yes. 01:45 Safety checks: Items removed: yes. Door open/sign placed on door: yes. Family/friend ag4 present: no. Sitter present: Yes. 02:00 Safety checks: Items removed: yes. Door open/sign placed on door: yes. Family/friend ag4 present: no. Sitter present: Yes. 02:15 Safety checks: Items removed: yes. Door open/sign placed on door: yes. Family/friend ag4 present: no. Sitter present: Yes. 02:30 Safety checks: Items removed: yes. Door open/sign placed on door: yes. Family/friend ag4 present: no. Sitter present: Yes. 02:45 Safety checks: Items removed: yes. Door open/sign placed on door: yes. Family/friend ag4 present: no. Sitter present: Yes. 03:00 Safety checks: Items removed: yes. Door open/sign placed on door: yes. Family/friend ag4 present: no. Sitter present: Yes. 03:15 Safety checks: Items removed: yes. Door open/sign placed on door: yes. Family/friend ag4 present: no. Sitter present: Yes. 03:30 Safety checks: Items removed: yes. Door open/sign placed on door: yes. Family/friend ag4 present: no. Sitter present: Yes. 03:45 Safety checks: Items removed: yes. Door open/sign placed on door: yes. Family/friend ag4 present: no. Sitter present: Yes. 04:00 Safety checks: Items removed: yes. Door open/sign placed on door: yes. Family/friend ag4 present: no. Sitter present: Yes. 04:30 Safety Checks: Personal items have been removed. The door is open or patient has been wh placed in a hallway bed/chair. There are no family/friend visitors at this time Sitter present at this time. 04:45 Safety Checks: Personal items have been removed. The door is open or patient has been wh placed in a hallway bed/chair. There are no family/friend visitors at this time Sitter present at this time. 05:00 Safety Checks: Personal items have been removed. The door is open or patient has been wh placed in a hallway bed/chair. There are no family/friend visitors at this time Sitter present at this time. 05:15 Safety Checks: Personal items have been removed. The door is open or patient has been wh placed in a hallway bed/chair. There are no family/friend visitors at this time Sitter present at this time. 05:30 Safety Checks: Personal items have been removed. The door is open or patient has been wh placed in a hallway bed/chair. There are no family/friend visitors at this time Sitter present at this time. 05:45 Safety Checks: Personal items have been removed. The door is open or patient has been wh placed in a hallway bed/chair. There are no family/friend visitors at this time Sitter present at this time. 06:00 Safety Checks: Personal items have been removed. The door is open or patient has been wh placed in a hallway bed/chair. There are no family/friend visitors at this time Sitter present at this time. 06:15 Safety Checks: Personal items have been removed. The door is open or patient has been wh placed in a hallway bed/chair. There are no family/friend visitors at this time Sitter present at this time. 06:15 Safety checks: Items removed: yes. Door open/sign placed on door: yes. Family/friend ag4 present: no. Sitter present: Yes. 06:30 Safety checks: Items removed: yes. Door open/sign placed on door: yes. Family/friend ag4 present: no. Sitter present: Yes. 07:00 Safety checks: Items removed: yes. Door open/sign placed on door: yes. Family/friend dh3 present: no. Sitter present: Yes. 07:13 fax PT clinical's to [facility], [facility], [facility], [facility], [facility], [facility], [facility], [facility], [facility], [facility], [place] and [place] at this time. 07:15 Safety checks: Items removed: yes. Door open/sign placed on door: yes. Family/friend dh3 present: no. Sitter present: Yes. 07:30 Safety checks: Items removed: yes. Door open/sign placed on door: yes. Family/friend dh3 present: no. Sitter present: Yes. 07:45 Safety checks: Items removed: yes. Door open/sign placed on door: yes. Family/friend dh3 present: no. Sitter present: Yes. 08:00 Safety checks: Items removed: yes. Door open/sign placed on door: yes. Family/friend dh3 present: no. Sitter present: Yes. 08:15 Safety checks: Items removed: yes. Door open/sign placed on door: yes. Family/friend dh3 present: no. Sitter present: Yes. 08:30 Safety checks: Items removed: yes. Door open/sign placed on door: yes. Family/friend dh3 present: no. Sitter present: Yes. 08:45 Safety checks: Items removed: yes. Door open/sign placed on door: yes. Family/friend dh3 present: no. Sitter present: Yes. 09:00 Safety Checks: Personal items have been removed. The door is not opened, nor is patient kp2 placed in a hallway bed/chair. Sitter present at this time. 09:00 Safety checks: Items removed: yes. Door open/sign placed on door: yes. Family/friend dh3 present: no. Sitter present: Yes. 09:15 Safety checks: Items removed: yes. Door open/sign placed on door: yes. Family/friend dh3 present: no. Sitter present: Yes. 09:30 Safety Checks: Personal items have been removed. The door is not opened, nor is patient kp2 placed in a hallway bed/chair. Sitter present at this time. 09:30 Safety checks: Items removed: yes. Door open/sign placed on door: yes. Family/friend dh3 present: no. Sitter present: Yes. 09:45 Safety Checks: Personal items have been removed. The door is not opened, nor is patient kp2 placed in a hallway bed/chair. Sitter present at this time. 09:45 Safety checks: Items removed: yes. Door open/sign placed on door: yes. Family/friend dh3 present: no. Sitter present: Yes. 10:00 Safety Checks: Personal items have been removed. The door is not opened, nor is patient kp2 placed in a hallway bed/chair. Sitter present at this time. 10:00 Safety checks: Items removed: yes. Door open/sign placed on door: yes. Family/friend dh3 present: no. Sitter present: Yes. 10:15 Safety Checks: Personal items have been removed. Items have not been removed Sitter kp2 present at this time. 10:15 Safety checks: Items removed: yes. Door open/sign placed on door: yes. Family/friend dh3 present: no. Sitter present: Yes. 10:30 Safety Checks: Personal items have been removed. The door is not opened, nor is patient kp2 placed in a hallway bed/chair. Sitter present at this time. 10:30 Safety checks: Items removed: yes. Door open/sign placed on door: yes. Family/friend dh3 present: no. Sitter present: Yes. 10:45 Safety Checks: Personal items have been removed. The door is not opened, nor is patient kp2 placed in a hallway bed/chair. Sitter present at this time. 10:45 Safety checks: Items removed: yes. Door open/sign placed on door: yes. Family/friend dh3 present: no. Sitter present: Yes. 11:00 Safety Checks: Personal items have been removed. The door is not opened, nor is patient kp2 placed in a hallway bed/chair. Sitter present at this time. 11:00 Safety checks: Items removed: yes. Door open/sign placed on door: yes. Family/friend dh3 present: no. Sitter present: Yes. 11:15 Safety Checks: Personal items have been removed. Items have not been removed Sitter kp2 present at this time. 11:30 Safety Checks: Personal items have been removed. The door is not opened, nor is patient kp2 placed in a hallway bed/chair. Sitter present at this time. 11:45 Safety Checks: Personal items have been removed. The door is not opened, nor is patient kp2 placed in a hallway bed/chair. Sitter present at this time. 12:00 Safety Checks: Personal items have been removed. Items have not been removed Sitter kp2 present at this time. 12:15 Safety Checks: Personal items have been removed. The door is not opened, nor is patient kp2 placed in a hallway bed/chair. Sitter present at this time. 12:30 Safety Checks: Personal items have been removed. The door is not opened, nor is patient kp2 placed in a hallway bed/chair. Sitter present at this time. 12:45 Safety Checks: Personal items have been removed. The door is not opened, nor is patient kp2 placed in a hallway bed/chair. Sitter present at this time. 13:00 Safety Checks: Personal items have been removed. The door is not opened, nor is patient kp2 placed in a hallway bed/chair. Sitter present at this time. 13:15 Safety checks: Items removed: yes. Door open/sign placed on door: yes. Family/friend mh5 present: no. Sitter present: Yes. 13:30 Safety checks: Items removed: yes. Door open/sign placed on door: yes. Family/friend mh5 present: no. Sitter present: Yes. 13:45 Safety checks: Items removed: yes. Door open/sign placed on door: yes. Family/friend mh5 present: no. Sitter present: Yes. 14:00 Safety Checks: Personal items have been removed. The door is not opened, nor is patient kp2 placed in a hallway bed/chair. Sitter present at this time. 14:15 Safety Checks: Personal items have been removed. The door is not opened, nor is patient kp2 placed in a hallway bed/chair. Sitter present at this time. 14:16 [facility] for transfer. waiting for Doctor to doctor report. ms 14:30 Safety Checks: Personal items have been removed. The door is not opened, nor is patient kp2 placed in a hallway bed/chair. Sitter present at this time. 14:45 Safety Checks: Personal items have been removed. The door is not opened, nor is patient kp2 placed in a hallway bed/chair. Sitter present at this time. 14:46 PHCP role handed off by Ramos Finley NP jr8 14:46 Kt Hyatt PA is PHCP. jr8 15:00 Safety Checks: Personal items have been removed. The door is not opened, nor is patient kp2 placed in a hallway bed/chair. Sitter present at this time. 15:30 Safety Checks: Personal items have been removed. The door is open or patient has been em5 placed in a hallway bed/chair. There are no family/friend visitors at this time Sitter present at this time. 15:45 Safety Checks: Personal items have been removed. The door is open or patient has been em5 placed in a hallway bed/chair. There are no family/friend visitors at this time Sitter present at this time. 16:01 Safety Checks: Personal items have been removed. The door is open or patient has been em5 placed in a hallway bed/chair. There are no family/friend visitors at this time Sitter present at this time. Patient fetched by EMS for transfer to [facility]. Administered Medications: 11/22 00:16 Drug: NS 0.9% 1000 ml Route: IV; Rate: 1000 ml; Site: left hand; ed1 02:12 Follow up: IV Status: Completed infusion; IV Intake: 1000ml ed1 00:31 Drug: NS 0.9% 1000 ml Route: IV; Rate: 1000 ml; Site: left hand; ed1 02:55 Follow up: IV Status: Completed infusion; IV Intake: 1000ml ed1 19:00 Drug: Nicoderm CQ 21 mg/24 hr 1 patches Route: Transdermal; Site: affected area; bp 19:30 Follow up: Response: No adverse reaction cc3 Intake: 02:12 IV: 1000ml; Total: 1000ml. ed1 02:55 IV: 1000ml; Total: 2000ml. ed1 Outcome: 17 03:17 ER care complete, transfer ordered by . pm1 11/24 16:24 Transferred by ground EMS to [facility], Transfer form completed. em Condition: good Instructed on the need for transfer, Demonstrated understanding of instructions. 16:25 Patient left the ED. em Signatures: Duy Lewis jb1 Darinel Hartman, R AND D LAB TECHNICIAN R AND D LAB TECHNICIAN em Marzena Forbes ms, Eric em1 Zahra Garrett, RN RN aa5 Antonia Lange RN RN ed1 Cinthia Gruber, RN RN lp1 Kt Hyatt, JAMEL MCCULLOUGH jr8 Andres Morse, RN RN la1 Ramos Finley, ADJUNCT INSTRUCTOR IN [employer]OMICS ADJUNCT INSTRUCTOR IN [employer]CONOMICS pm1 Fausto, Darryl Damon, Marzena 5 Enrique, Lydia am2 Calero, Rachael mt Kothari, Eli 3 Chris, Mello wh Guillermina, Sohail, RN INES Cervantes, [place] eb Sherron, Renate cc3 See, Radha kp2 Wilson, Brayan ag4 Mangubat, Sendy em5 Corrections: (The following items were deleted from the chart) 11/22 00:57 00:48 Safety checks: Items removed: yes. Door open/sign placed on door: yes. ag4 Family/friend present: yes. Sitter present: Yes. ag4 19:17 18:30 Safety checks: Items removed: yes. Door open/sign placed on door: yes. dh3 Family/friend present: yes. Sitter present: Yes. ag4 19:18 18:45 Safety checks: Items removed: yes. Door open/sign placed on door: yes. dh3 Family/friend present: yes. Sitter present: Yes. ag4 20:59 19:15 Reassessment: Patient appears in no apparent distress at this time. Patient cc3 and/or family updated on plan of care and expected duration. Pain level reassessed. Patient is alert, oriented x 3, equal unlabored respirations, skin warm/dry/pink. Received this female patient from morning shift INES combs case of suicidal ideation, sitter at bedside. Patient calm and no complaints noted. cc3 :09 19:15 Reassessment: Patient appears in no apparent distress at this time. Patient cc3 and/or family updated on plan of care and expected duration. Pain level reassessed. Patient is alert, oriented x 3, equal unlabored respirations, skin warm/dry/pink. Received this female patient from morning shift INES sin a case of suicidal ideation, sitter at bedside. Patient calm and no complaints noted. No IV cannula in situ. cc3 : 20:18 Reassessment: Patient appears in no apparent distress at this time. Patient cc3 and/or family updated on plan of care and expected duration. Pain level reassessed. Patient is alert, oriented x 3, equal unlabored respirations, skin warm/dry/pink. cc3 21:10 21:08 Reassessment: Patient appears in no apparent distress at this time. Patient cc3 and/or family updated on plan of care and expected duration. Pain level reassessed. Patient is alert, oriented x 3, equal unlabored respirations, skin warm/dry/pink. Patient having some snacks. Patient denies pain at this time. cc3 21:12 19:15 Reassessment: Patient appears in no apparent distress at this time. Patient cc3 and/or family updated on plan of care and expected duration. Pain level reassessed. Patient is alert, oriented x 3, equal unlabored respirations, skin warm/dry/pink. Received this female patient from morning shift RN Sohail combs case of suicidal ideation, sitter at bedside. Patient calm and no complaints noted. No IV cannula in situ. Patient denies pain at this time. 3 11/23 01:47 01:09 Safety checks: Items removed: yes. Door open/sign placed on door: yes. oe Family/friend present: no. Sitter present: Yes. oe 02:24 01:58 Safety checks: Items removed: yes. Door open/sign placed on door: yes. oe Family/friend present: no. Sitter present: Yes. oe 06:03 04:10 Reassessment: Patient appears in no apparent distress at this time. Patient cc3 and/or family updated on plan of care and expected duration. Pain level reassessed. Patient is alert, oriented x 3, equal unlabored respirations, skin warm/dry/pink. Sitter present, patient comfortably sleeping, kept undisturbed. cc3 06:04 05:26 Reassessment: Patient appears in no apparent distress at this time. Patient cc3 and/or family updated on plan of care and expected duration. Pain level reassessed. Sitter present, patient still sleeping comfortably. cc3 09:59 08:40 Safety checks: Items removed: yes. Door open/sign placed on door: yes. ms Family/friend present: no. Sitter present: Yes. ms 10:09 10:08 Safety checks: Items removed: yes. Door open/sign placed on door: yes. ms Family/friend present: no. Sitter present: Yes. ms 10:09 10:08 Diet tray given. ms ms 15:06 14:40 Safety checks: ms ms 15: 14:40 Safety checks: Items removed: yes. Door open/sign placed on door: yes. ms Family/friend present: no. Sitter present: Yes. ms 18:35 18:25 Safety checks: Items removed: yes. Door open/sign placed on door: yes. ms Family/friend present: no. Sitter present: Yes. ms 11/24 10:16 09:03 Reassessment: [facility] 11:51 11:30 Safety Checks: Personal items have been removed. The door is open or patient has kp2 been placed in a hallway bed/chair. Sitter present at this time. kp2 13:51 13:15 Safety Checks: Personal items have been removed. Items have not been removed kp2 Sitter present at this time. kp2
== END 2018-11-24 16:25 ==
LOC: ER 21:14
DX: R45.851 Suicidal ideations (principal); F32.9 Major depressive disorder, single episode, unspecified; F17.210 Nicotine dependence, cigarettes, uncomplicated; Z88.0 Allergy status to penicillin
CPT/HCPCS: 36415; 80048; 80076; 80307; 80320; 80329; 81003; 81025; 85025; 85610; 85730; 93005; 96360; 96361; 99285